=== PATIENT | female | born 1955 | race Caucasian/White ===

== ENCOUNTER 2017-05-26 09:59 | Observation (INO) | payer BC ==
[2017-05-26 10:08] VITALS: RESP 18
--- NOTE | 2017-05-26 10:51 | ED ---
General Adult HPI - General Chief complaint: Eye Problems Stated complaint: eye swelling Time Seen by Provider: 05/26/17 10:32 Source: patient Mode of arrival: ambulatory Limitations: no limitations - History of Present Illness Initial comments: 62-year-old female complains of swelling around her right eye. She states she had a pimple on her forehead for about 3 days was seen at [facility] They tried to coleen the pimple and express pus which they did not express any pus. It was treated with ointment she has multiple antibiotic ALLERGIES including azithromycin and erythromycin penicillin and sulfa and cephalexin. She last night developed some temperature is now developed a red area extending from above the pimple on the right forehead down below onto the right cheek with swelling and edema of the lids of the eye no change in her vision. No nausea no vomiting. History of [id number] diabetes - Related Data Home Medications Medication Instructions Recorded Confirmed Aspirin 81 mg PO DAILY 05/26/17 05/26/17 Ibuprofen [Motrin] 400 - 800 mg PO Q6HR PRN 05/26/17 05/26/17 Lansoprazole [Prevacid] 15 mg PO DAILY 05/26/17 05/26/17 Pravastatin Sodium [Pravachol] 40 mg PO DAILY 05/26/17 05/26/17 Valsartan/Hydrochlorothiazide 1 tab PO DAILY 05/26/17 05/26/17 [Valsartan-Hctz 160-25 mg Tab] metFORMIN HCL ER [Glucophage Xr] 500 mg PO BID 05/26/17 05/26/17 sitaGLIPtin [Januvia] 100 mg PO DAILY 05/26/17 05/26/17 Allergies Allergy/AdvReac Type Severity Reaction Status Date / Time azithromycin Allergy Rash/Hives Verified 05/26/17 11:14 erythromycin base Allergy Nausea & Verified 05/26/17 11:14 Vomiting Penicillins Allergy Rash/Hives Verified 05/26/17 11:14 Sulfa (Sulfonamide Allergy Rash/Hives Verified 05/26/17 11:14 Antibiotics) sulfamethoxazole Allergy Rash/Hives Verified 05/26/17 11:14 [From Septra] trimethoprim [From Septra] Allergy Rash/Hives Verified 05/26/17 11:14 cephalexin [From Keflex] AdvReac Nausea & Verified 05/26/17 11:14 Vomiting Review of Systems ROS Statement: Those systems with pertinent positive or pertinent negative responses have been documented in the HPI. ROS Other: All systems not noted in ROS Statement are negative. Constitutional: Reports: fever. Denies: chills Eyes: Denies: eye pain, eye discharge ENT: Denies: ear pain, throat pain Respiratory: Denies: cough, dyspnea Cardiovascular: Denies: chest pain Endocrine: Denies: fatigue Gastrointestinal: Denies: abdominal pain, nausea, vomiting, diarrhea Genitourinary: Denies: urgency, dysuria Musculoskeletal: Denies: back pain Skin: Denies: rash Psychiatric: Denies: anxiety, depression Hematological/Lymphatic: Denies: easy bleeding, easy bruising, swollen glands Past Medical History Past Medical History: Diabetes Mellitus, Hypertension Additional Past Medical History / Comment(s): basal skin cancer on face History of Any Multi-Drug Resistant Organisms: None Reported Past Surgical History: Section, Orthopedic Surgery Additional Past Surgical History / Comment(s): breast biopsy, skin CA Past Psychological History: No Psychological Hx Reported Smoking Status: Never smoker Past Alcohol Use History: Occasional Past Drug Use History: None Reported General Exam Limitations: no limitations General appearance: alert, in no apparent distress Head exam: Present: atraumatic Eye exam: Present: normal appearance, PERRL, EOMI Pupils: Present: normal accommodation ENT exam: Present: normal exam, normal oropharynx, mucous membranes moist, TM's normal bilaterally Neck exam: Present: normal inspection Respiratory exam: Present: normal lung sounds bilaterally Cardiovascular Exam: Present: regular rate, normal rhythm, normal heart sounds GI/Abdominal exam: Present: distended, normal bowel sounds Neurological exam: Present: alert, CN II-XII intact Psychiatric exam: Present: normal affect, normal mood Skin exam: Present: warm, dry, rash (Carbuncle on the right forehead about the 6 -8 mm in diameter area of redness extending from the forehead down to the cheek with edema of the right eyelids) Course Vital Signs 05/26/17 05/26/17 10:03 12:21 Temperature 98.1 F 97.9 F Pulse Rate 89 70 Respiratory 18 18 Rate Blood Pressure 139/79 174/74 O2 Sat by Pulse 98 98 Oximetry Medical Decision Making - Medical Decision Making Spoke to PA for , patient will be admitted for IV vancomycin culture was sent of the wound. Patient be on 24 hour hold - Lab Data Result diagrams: 05/26/17 11:00 05/26/17 11:00 Lab Results 05/26/17 05/26/17 Range/Units 11:00 11:00 WBC 11.2 H (3.8-10.6) k/uL RBC 4.62 (3.80-5.40) m/uL Hgb 13.2 (11.4-16.0) gm/dL Hct 39.1 (34.0-46.0) % MCV 84.7 (80.0-100.0) fL MCH 28.6 (25.0-35.0) pg MCHC 33.8 (31.0-37.0) g/dL RDW 13.2 (11.5-15.5) % Plt Count 293 (150-450) k/uL Neutrophils % 86 % Lymphocytes % 7 % Monocytes % 4 % Eosinophils % 2 % Basophils % 1 % Neutrophils # 9.7 H (1.3-7.7) k/uL Lymphocytes # 0.7 L (1.0-4.8) k/uL Monocytes # 0.5 (0-1.0) k/uL Eosinophils # 0.2 (0-0.7) k/uL Basophils # 0.1 (0-0.2) k/uL Sodium 133 L (137-145) mmol/L Potassium 3.6 (3.5-5.1) mmol/L Chloride 99 (98-107) mmol/L Carbon Dioxide 24 (22-30) mmol/L Anion Gap 10 mmol/L BUN 18 H (7-17) mg/dL Creatinine 0.66 (0.52-1.04) mg/dL Est GFR (MDRD) Af Amer >60 (>60 ml/min/1.73 sqM) Est GFR (MDRD) Non-Af >60 (>60 ml/min/1.73 sqM) Glucose 159 H (74-99) mg/dL Calcium 9.8 (8.4-10.2) mg/dL Total Bilirubin 0.6 (0.2-1.3) mg/dL AST 25 (14-36) U/L ALT 37 (9-52) U/L Alkaline Phosphatase 101 (38-126) U/L Total Protein 6.8 (6.3-8.2) g/dL Albumin 4.0 (3.5-5.0) g/dL Disposition Clinical Impression: Facial cellulitis Disposition: ADMITTED IP TO THIS HOSP Condition: Good Referrals: Lalo Hays MD [Primary Care Provider] - 1-2 days Time of Disposition: 12:31
[2017-05-26 11:13] LABS: Basophils # (A) 0.1 k/uL (0-0.2); Basophils % (A) 1 %; CH 28.4; CHCM 33.6; Eosinophils # (A) 0.2 k/uL (0-0.7); Eosinophils % (A) 2 %; HCT 39.1 % (34.0-46.0); HDW 2.61; HGB 13.2 gm/dL (11.4-16.0); Luc # (Auto) 0.13; Luc % (Auto) 1; Lymphocytes # (A) 0.7 k/uL (1.0-4.8); Lymphocytes % (A) 7 %; MCH 28.6 pg (25.0-35.0); MCHC 33.8 g/dL (31.0-37.0); MCV 84.7 fL (80.0-100.0); Mean Platelet Volume 7.6; Monocytes # (A) 0.5 k/uL (0-1.0); Monocytes % (A) 4 %; Neutrophils # (A) 9.7 k/uL (1.3-7.7); Neutrophils % (A) 86 %; RBC 4.62 m/uL (3.80-5.40); RDW 13.2 % (11.5-15.5); WBC 11.2 k/uL (3.8-10.6); WBC (Perox) 10.84
[2017-05-26 11:28] LABS: ALT 37 U/L (9-52); AST 25 U/L (14-36); Alkaline Phosphatase 101 U/L (38-126); Anion Gap 10 mmol/L; Blood Urea Nitrogen 18 mg/dL (7-17); Calcium 9.8 mg/dL (8.4-10.2); Carbon Dioxide 24 mmol/L (22-30); Chloride 99 mmol/L (98-107); Glucose 159 mg/dL (74-99); Non-African American GFR(MDRD) >60 (>60 ml/min/1.73 sqM); Potassium 3.6 mmol/L (3.5-5.1); Sodium 133 mmol/L (137-145); Total Bilirubin 0.6 mg/dL (0.2-1.3); Total Protein 6.8 g/dL (6.3-8.2)
[2017-05-26] MEDS ORDERED: VANCOMYCIN 1,500 MG in SODIUM CHLORIDE 0.9% 250 ML IVPB ONE (12:00)
[2017-05-26] MEDS ORDERED: NALOXONE 0.4 MG/ML 1 ML VIAL IV PRN (12:28)
[2017-05-26] MEDS ORDERED: IV VANCOMYCIN PER PHARMACY 1 EACH MISC MISCELLANE PRN (12:29)
[2017-05-26] MEDS: HYDROCHLOROTHIAZIDE 25 MG TAB PO SCH (13:55)
[2017-05-26] MEDS: VALSARTAN 160 MG TAB PO SCH (13:56)
[2017-05-26 14:16] VITALS: BMI 43.4
[2017-05-26] MEDS: SODIUM CHLORIDE 0.9% 1,000 ML IV SCH (15:45)
[2017-05-26] MEDS: ENOXAPARIN 40 MG/0.4 ML SYRINGE SQ SCH (17:04)
[2017-05-26] MEDS: metFORMIN 500 MG TAB PO SCH (17:04)
[2017-05-26] MEDS: IBUPROFEN 400 MG TAB PO PRN (18:27)
--- NOTE | 2017-05-26 19:57 | P.HPIM ---
History of Present Illness H&P Date: 05/26/17 Chief Complaint: Right eye swelling This is a 62-year-old female patient of Dr. Bubba Hays with chronic medical stable conditions that include diabetes mellitus, hypertension, and basal skin cancer on the face, presented to the emergency department with complaints of swelling around her right eye. Stated she had a pimple that had formed on her for head on the right side and it increased in size and had become painful and felt that it needed to be looked at. Patient went to [facility] outpatient clinic and they tried to coleen the pimple and expressed possible, and there was none to express. Received ointment postprocedure and no antibiotics and was sent home. During the night patient developed a fever area above the eye and on to the forehead had increased swelling and redness in this traveled down to the right cheek. Patient was unable to open her eye, had no visual changes. No nausea no vomiting. Review of Systems GEN.: [None] EYES: [Right eye red swollen unable to open HEENT: [None] NECK: [None] RESPIRATORY: [None] CARDIOVASCULAR: [None] GASTROINTESTINAL: [None] GENITOURINARY: [None] MUSCULOSKELETAL: [Generalized joint aches and pains] LYMPHATICS: [None] HEMATOLOGICAL: [None] PSYCHIATRY: [None] NEUROLOGICAL: [None] DERMATOLOGIC: Pimple to right nondenominational, reddened area beginning at the right bridge of the nose extending to the hairline down the right side of the face to about the outer canthus of the right eye, swelling to the right eyelid, right orbit and area just above the cheek bone. Past Medical History Past Medical History: Diabetes Mellitus, Hypertension Additional Past Medical History / Comment(s): basal skin cancer on face History of Any Multi-Drug Resistant Organisms: None Reported Past Surgical History: Section, Orthopedic Surgery Additional Past Surgical History / Comment(s): breast biopsy, skin CA Past Anesthesia/Blood Transfusion Reactions: No Reported Reaction Past Psychological History: No Psychological Hx Reported Smoking Status: Never smoker Past Alcohol Use History: Occasional Past Drug Use History: None Reported - Past Family History Mother Family Medical History: Cancer, Diabetes Mellitus, Myocardial Infarction ([place]) Additional Family Medical History / Comment(s): pancreatic Medications and Allergies Home Medications Medication Instructions Recorded Confirmed Type Aspirin 81 mg PO DAILY 05/26/17 05/26/17 History Ibuprofen [Motrin] 400 - 800 mg PO Q6HR PRN 05/26/17 05/26/17 History Lansoprazole [Prevacid] 15 mg PO DAILY 05/26/17 05/26/17 History Pravastatin Sodium [Pravachol] 40 mg PO DAILY 05/26/17 05/26/17 History Valsartan/Hydrochlorothiazide 1 tab PO DAILY 05/26/17 05/26/17 History [Valsartan-Hctz 160-25 mg Tab] metFORMIN HCL ER [Glucophage Xr] 500 mg PO BID 05/26/17 05/26/17 History sitaGLIPtin [Januvia] 100 mg PO DAILY 05/26/17 05/26/17 History Allergies Allergy/AdvReac Type Severity Reaction Status Date / Time azithromycin Allergy Rash/Hives Verified 05/26/17 13:51 erythromycin base Allergy Nausea & Verified 05/26/17 13:51 Vomiting Penicillins Allergy Rash/Hives Verified 05/26/17 13:51 Sulfa (Sulfonamide Allergy Rash/Hives Verified 05/26/17 13:51 Antibiotics) sulfamethoxazole Allergy Rash/Hives Verified 05/26/17 13:51 [From Julra] trimethoprim [From Septra] Allergy Rash/Hives Verified 05/26/17 13:51 cephalexin [From Keflex] AdvReac Nausea & Verified 05/26/17 13:51 Vomiting Physical Exam Vitals: Vital Signs Temp Pulse Pulse Resp BP BP Pulse Ox 05/26/17 14:39 97.2 F L 83 18 159/73 97 05/26/17 12:54 98.0 F 74 18 169/74 97 05/26/17 12:21 97.9 F 70 18 174/74 98 05/26/17 10:03 98.1 F 89 18 139/79 98 Intake and Output 05/26/17 05/26/17 05/26/17 06:59 14:59 22:59 Intake Total 200 Balance 200 Intake: Oral 200 Other: # Voids 2 Weight 115 kg Patient Weight 05/27/17 06:59 Weight 115 kg VITAL SIGNS: Temperature 97.2, pulse 83, respirations 18, blood pressure 159/73 , oxygen saturation 97% on room air. BMI noted] GENERAL: [Average built, sitting up, comfortable]. EYES: [Pupils equal. Right eyelid, and orbit swollen, red conjunctiva irritated.]l. HEENT: [External appearance of nose and ears normal, oral cavity grossly normal] . NECK: [JVD not raised; masses not palpable]. HEART: [First and second heart sounds are normal; no edema]. LUNGS:[ Respiratory rate normal; clear to auscultation]. ABDOMEN: [Soft, nontender, liver spleen not palpable, no masses palpable]. LYMPHATICS: [No lymph nodes palpable in the axilla and neck]. PSYCH: [Alert and oriented x3; mood and affect shashank]l. NEUROLOGICAL: [Cranial nerves grossly intact; no facial asymmetry, power and sensation grossly intact]. DERMATOLOGIC: Beginning at the right bridge of the nose extending up to the hairline on the right side of face extending downward to the outer canthus of the eye, skin is reddened and tender warm to palpation swollen area marked off with black marker to monitor swelling, carbuncle on the right forehead about the nondenominational measuring about 6-8 mm in diameter. Results CBC & Chem 7: 05/26/17 11:00 05/26/17 11:00 Labs: Abnormal Lab Results - Last 24 Hours (Table) 05/26/17 05/26/17 Range/Units 11:00 11:00 WBC 11.2 H (3.8-10.6) k/uL Neutrophils # 9.7 H (1.3-7.7) k/uL Lymphocytes # 0.7 L (1.0-4.8) k/uL Sodium 133 L (137-145) mmol/L BUN 18 H (7-17) mg/dL Glucose 159 H (74-99) mg/dL Microbiology - Last 24 Hours (Table) 05/26/17 11:08 Wound Culture - Preliminary Eye - Right Thrombosis Risk Factor Assmnt - Choose All That Apply Any of the Below Risk Factors Present?: Yes Each Factor Represents 1 point: Age 41-60 years, Obesity (BMI >25), Varicose veins Other Risk Factors: Yes Each Risk Factor Represents 2 Points: Age 61-74 years Each Risk Factor Represents 3 Points: Family history of DVT/PE Thrombosis Risk Factor Assessment Total Risk Factor Score: 8 Thrombosis Risk Factor Assessment Level: High Risk Assessment and Plan Plan: ASSESSMENT: -Facial cellulitis secondary to carbuncle being lanced and an attempt to express pus from said carbuncle, creating swelling tenderness and edema. -Diabetes mellitus2, chronically on oral hypoglycemics -Osteoarthritis of multiple joints bilateral -Essential hypertension -GERD -Hyperlipidemia PLAN: Home medications reordered, Lovenox ordered for DVT prophylaxis, vancomycin started, swelling to right eye has already responded to antibiotic administration and is considerably less. We'll continue to follow closely. [employer] statement: Patient seen and examined by nurse practitioner Colleen Grullon and all elements of the case discussed with attending Dr. Sherman
[2017-05-26] MEDS: VANCOMYCIN 2,000 MG in SODIUM CHLORIDE 0.9% 500 ML IVPB SCH (20:05)
[2017-05-26 21:23] LABS: Glucose,Whole Blood 180 mg/dL (75-99)
[2017-05-27] MEDS: SODIUM CHLORIDE 0.9% 1,000 ML IV SCH
[2017-05-27 06:58] LABS: Glucose,Whole Blood 155 mg/dL (75-99)
--- NOTE | 2017-05-27 07:23 | HP ---
DATE OF ADMISSION: 05/26/17 PRESENTING COMPLAINT: Periorbital swelling, redness. HISTORY OF PRESENTING COMPLAINT: This is a pleasant 62 year old patient of Dr. Hays who started out with a pimple that got to extend, became red, swollen around the right eye and eyelid started shutting. The patient did go down to [facility]. They tried to coleen it and express it, nothing much came out. He was sent home with no antibiotics. It started to get worse again and the patient developed some fever and decided to present here. The patient did get a dose of IV Vancomycin in the ER. On examination, febrile at home. Redness, swelling around the red eye in the periorbital area extending a bit laterally. Lungs are clear. Cardiovascular first and second sounds normal. Investigations: White count 11.2, potassium 3.6. ASSESSMENT: 1. Acute right facial cellulitis starting from a pimple having failed outpatient treatment. 2. Diabetes mellitus Type 2, on oral hypoglycemic. 3. Essential hypertensin. 4. Morbid obesity, BMI 43.5. PLAN: Home medications are resumed. The patient is put on Vancomycin that she did receive in the ER. Care was discussed with the patient. This is attending note. The patient was seen and examined by me. I reviewed the H&P Of my nurse practitioner, Ms. Grullon. Additional findings as above. MTDD
[2017-05-27] MEDS: metFORMIN 500 MG TAB PO SCH (07:24)
[2017-05-27 07:33] LABS: Basophils % (A) 1 %; CH 28.1; CHCM 32.7; Eosinophils # (A) 0.2 k/uL (0-0.7); Eosinophils % (A) 3 %; HCT 36.7 % (34.0-46.0); HDW 2.68; HGB 12.2 gm/dL (11.4-16.0); Luc % (Auto) 2; Lymphocytes # (A) 0.8 k/uL (1.0-4.8); Lymphocytes % (A) 15 %; MCH 28.8 pg (25.0-35.0); MCHC 33.3 g/dL (31.0-37.0); MCV 86.4 fL (80.0-100.0); Mean Platelet Volume 7.7; Monocytes # (A) 0.3 k/uL (0-1.0); Monocytes % (A) 5 %; Neutrophils # (A) 4.2 k/uL (1.3-7.7); Neutrophils % (A) 75 %; RBC 4.24 m/uL (3.80-5.40); RDW 13.2 % (11.5-15.5); WBC 5.6 k/uL (3.8-10.6); WBC (Perox) 5.84
[2017-05-27 07:55] LABS: Anion Gap 5 mmol/L; Blood Urea Nitrogen 14 mg/dL (7-17); Calcium 8.9 mg/dL (8.4-10.2); Carbon Dioxide 28 mmol/L (22-30); Chloride 103 mmol/L (98-107); Glucose 164 mg/dL (74-99); Non-African American GFR(MDRD) >60 (>60 ml/min/1.73 sqM); Potassium 3.5 mmol/L (3.5-5.1); Sodium 136 mmol/L (137-145)
[2017-05-27] MEDS: VANCOMYCIN 2,000 MG in SODIUM CHLORIDE 0.9% 500 ML IVPB SCH (08:32)
[2017-05-27] MEDS: HYDROCHLOROTHIAZIDE 25 MG TAB PO SCH (08:36)
[2017-05-27] MEDS: IBUPROFEN 400 MG TAB PO PRN ×2 (08:36)
[2017-05-27] MEDS: VALSARTAN 160 MG TAB PO SCH (08:36)
[2017-05-27 08:45] VITALS: BP 133/50; PULSE 65; TEMP 97.6
[2017-05-27] MEDS ORDERED: PRAVASTATIN SODIUM 40 MG TAB PO SCH (09:00)
[2017-05-27] MEDS ORDERED: LINAGLIPTIN 5 MG TABLET PO SCH (09:00)
[2017-05-27] MEDS ORDERED: PANTOPRAZOLE 40 MG TABLET PO SCH (09:00)
[2017-05-27] MEDS ORDERED: VANCOMYCIN TROUGH DUE 1 EACH MISC MISCELLANE ONE (09:00)
[2017-05-27] MEDS ORDERED: ASPIRIN 81 MG CHEW PO SCH (09:00)
[2017-05-27] MEDS: ENOXAPARIN 40 MG/0.4 ML SYRINGE SQ SCH (16:39)
[2017-05-28] MEDS ORDERED: VANCOMYCIN TROUGH DUE 1 EACH MISC MISCELLANE ONE (07:00)
--- NOTE | 2017-05-30 13:41 | DS ---
FINAL DIAGNOSES: 1. Acute right facial cellulitis having failed outpatient treatment. 2. Diabetes mellitus, Type 2, chronically on oral hypoglycemics. 3. Primary osteoarthritis of multiple joints. 4. Essential hypertension. 5. Gastroesophageal reflux disease. 6. Hyperlipidemia. HOSPITAL COURSE: This patient with right sided face started with a pimple, then went on to get periorbital cellulitis, put on Vancomycin to which she responded well. The patient had been to local urgent care and they tried to express something and nothing really came out. Symptoms greatly improved by the time. Some residual redness still present. The patient's daughter at the bedside. The patient remained afebrile. On examination, decreased redness, decreased tenderness in the right side of the face. DISCHARGE MEDICATIONS: 1. Aspirin 81 mg a day. 2. Cymbalta 60 mg b.i.d. 3. Neurontin 600 mg t.i.d. 4. Magnesium 400 mg po t.i.d. 5. Prilosec 20 mg daily. 6. Coumadin 5 mg a day 48 hours. 7. Lamictal 50 mg po daily. 8. Metformin 1000 mg po b.i.d. 9. Lipitor 20 mg q.h.s. 10. Cordarone 100 mg b.i.d. 11. Percocet 10 one tablet q4h prn. 12. Zestril 5 mg po q.h.s. 13. Coumadin 2.5 every 48 hours. 14. Toprol XL 30 mg po daily. 15. Lasix 40 mg q.h.s. 16. Zestril 5 mg q.h.s. 17. Coumadin 2.5 mg every 48 hours. 18. Toprol XL 50 mg a day. 19. Lasix 40 mg q.h.s. 20. Synthroid 75 mcg a day. 21. Lasix 80 mg a day. 22. Doxycycline 100 mg q12 20 tablets. 23. NovoLog mix 70/30 10 units with lunch, 20 with supper, 30 with breakfast. Care was discussed in detail with the patient. Discharge planning more than [address] Morgan in three days. [facility] BROTHERS MEDICAL CENTERGayle
== END 2017-05-27 16:35 | disposition home or self-care (01) ==
LOC: EC 09:59 → 6PED 12:28
PROVIDERS: ADMIT Hospitalist; ATTEND Hospitalist
DX: L03.211 Cellulitis of face (principal); L03.213 Periorbital cellulitis; E11.9 Type 2 diabetes mellitus without complications; I10 Essential (primary) hypertension; K21.9 Gastro-esophageal reflux disease without esophagitis; E78.5 Hyperlipidemia, unspecified; Z79.82 Long term (current) use of aspirin; Z79.899 Other long term (current) drug therapy; Z79.84 Long term (current) use of oral hypoglycemic drugs; Z88.1 Allergy status to other antibiotic agents; Z88.0 Allergy status to penicillin; Z88.2 Allergy status to sulfonamides; Z88.8 Allergy status to other drugs, medicaments and biological substances; Z85.828 Personal history of other malignant neoplasm of skin; Z82.49 Family history of ischemic heart disease and other diseases of the circulatory system; Z68.41 Body mass index [BMI] 40.0-44.9, adult; E66.01 Morbid (severe) obesity due to excess calories; M19.91 Primary osteoarthritis, unspecified site
CPT/HCPCS: 96365 ×2; 96366; 96372 ×2; 99284; 36415; 80053; 80048; 85025 ×2; 87070; 87205; 87077; 87186; G0378 ×2; J3370 ×2; J1650

== ENCOUNTER 2017-11-12 13:12 | Emergency (ER) | payer BC ==
[2017-11-12] MEDS ORDERED: LEVOFLOXACIN 500 MG TAB PO STA (14:34)
[2017-11-12] MEDS ORDERED: LEVOFLOXACIN 250 MG TAB PO STA (14:34)
--- NOTE | 2017-11-12 14:36 | ED ---
Skin/Abscess/FB HPI - General Chief complaint: Skin/Abscess/Foreign Body Stated complaint: Rash on thigh Time Seen by Provider: 11/12/17 14:02 Source: patient, family, RN notes reviewed, old records reviewed Mode of arrival: ambulatory Limitations: no limitations - History of Present Illness Initial comments: 62 yo female, history of MRSA with 3 days of erythema over right inner thigh. She reports started as small pimple. Denies focal abscess to drain. She is diabetic. Denies fever or chills. Denies CP, SOB, nausea, vomiting and other symptomss. - Related Data Home Medications Medication Instructions Recorded Confirmed Aspirin 81 mg PO DAILY 05/26/17 11/12/17 Ibuprofen [Motrin] 400 - 800 mg PO Q6HR PRN 05/26/17 11/12/17 Lansoprazole [Prevacid] 15 mg PO DAILY 05/26/17 11/12/17 Pravastatin Sodium [Pravachol] 40 mg PO DAILY 05/26/17 11/12/17 Valsartan/Hydrochlorothiazide 1 tab PO DAILY 05/26/17 11/12/17 [Valsartan-Hctz 160-25 mg Tab] metFORMIN HCL ER [Glucophage Xr] 500 mg PO BID 05/26/17 11/12/17 sitaGLIPtin [Januvia] 100 mg PO DAILY 05/26/17 11/12/17 Previous Rx's Medication Instructions Recorded Doxycycline [Vibramycin] 100 mg PO Q12HR 10 Days 11/12/17 Allergies Allergy/AdvReac Type Severity Reaction Status Date / Time azithromycin Allergy Rash/Hives Verified 11/12/17 13:51 erythromycin base Allergy Nausea & Verified 11/12/17 13:51 Vomiting Penicillins Allergy Rash/Hives Verified 11/12/17 13:51 Sulfa (Sulfonamide Allergy Rash/Hives Verified 11/12/17 13:51 Antibiotics) sulfamethoxazole Allergy Rash/Hives Verified 11/12/17 13:51 [From Septra] trimethoprim [From Septra] Allergy Rash/Hives Verified 11/12/17 13:51 cephalexin [From Keflex] AdvReac Nausea & Verified 11/12/17 13:51 Vomiting Review of Systems ROS Statement: Those systems with pertinent positive or pertinent negative responses have been documented in the HPI. ROS Other: All systems not noted in ROS Statement are negative. Past Medical History Past Medical History: Cancer, Diabetes Mellitus, Hypertension Additional Past Medical History / Comment(s): basal skin cancer on face History of Any Multi-Drug Resistant Organisms: MRSA Date of last positivie culture/infection: 05/26/17 MDRO Source:: EYE Past Surgical History: Section, Orthopedic Surgery Additional Past Surgical History / Comment(s): breast biopsy, skin CA Past Anesthesia/Blood Transfusion Reactions: No Reported Reaction Past Psychological History: No Psychological Hx Reported Smoking Status: Never smoker Past Alcohol Use History: Occasional Past Drug Use History: None Reported - Past Family History Mother Family Medical History: Cancer, Diabetes Mellitus, Myocardial Infarction ([place]) Additional Family Medical History / Comment(s): pancreatic General Exam - General Exam Comments Initial Comments: This is a 62 year old female, with CC rash on right inner thigh. No distress. Vitals stable. Limitations: no limitations General appearance: alert, in no apparent distress Head exam: Present: atraumatic, normocephalic, normal inspection Eye exam: Present: normal appearance, PERRL, EOMI. Absent: scleral icterus, conjunctival injection, periorbital swelling ENT exam: Present: normal exam, mucous membranes moist Neck exam: Present: normal inspection. Absent: tenderness, meningismus, lymphadenopathy Respiratory exam: Present: normal lung sounds bilaterally. Absent: respiratory distress, wheezes, rales, rhonchi, stridor Cardiovascular Exam: Present: regular rate, normal rhythm, normal heart sounds. Absent: systolic murmur, diastolic murmur, rubs, gallop, clicks GI/Abdominal exam: Present: soft, normal bowel sounds. Absent: distended, tenderness, guarding, rebound, rigid Extremities exam: Present: normal inspection, full ROM, normal capillary refill , other (8 inch area of cellulitis over ight inner thigh. No focal abscess drainage. ). Absent: tenderness, pedal edema, joint swelling, calf tenderness Back exam: Present: normal inspection Course Vital Signs 11/12/17 11/12/17 13:18 14:55 Temperature 98.4 F 98.1 F Pulse Rate 92 88 Respiratory 16 20 Rate Blood Pressure 151/67 128/84 O2 Sat by Pulse 99 98 Oximetry Medical Decision Making - Medical Decision Making 62 year old diabetic with Hx of MRSA with 3 days of right inner thigh celluliits. She reports no Recent abx. She was admitted for facial cellulites in May. She has a complicated alergy list to many appropriate antibiotics. Previous discharge, patient was started on doxycycline. I will initiate doxy today, dose in ED. Patient was offered admission with IV antibiotic. She reports she wants to try outpatient first. Discussed follow up promptly, discussed that if area of erythema worsens that she needs to return for IV antibiotics. . Discuarged on docy for 10 days. Return parameters discussed. Disposition Clinical Impression: Cellulitis of thigh Disposition: HOME SELF-CARE Condition: Good Instructions: Cellulitis (ED) Additional Instructions: Ice to take antibiotic as prescribed. Follow-up with PCP within the next 1-2 days. Motrin Tylenol for fever or pain. The area is worsening despite taking the antibiotic patient is return to the emergency center. Prescriptions: Doxycycline [Vibramycin] 100 mg PO Q12HR 10 Days Referrals: Lalo Hays MD [Primary Care Provider] - 1-2 days Time of Disposition: 14:34
[2017-11-12] MEDS ORDERED: DOXYCYCLINE 50 MG CAP PO STA (14:38)
[2017-11-12 14:58] VITALS: BP 128/84; PULSE 88; RESP 20; TEMP 98.1
== END 2017-11-12 14:57 | disposition home or self-care (01) ==
LOC: EC 13:12
DX: L03.115 Cellulitis of right lower limb (principal); I10 Essential (primary) hypertension; E11.9 Type 2 diabetes mellitus without complications; Z79.82 Long term (current) use of aspirin; Z79.84 Long term (current) use of oral hypoglycemic drugs; Z79.899 Other long term (current) drug therapy; Z88.0 Allergy status to penicillin; Z88.1 Allergy status to other antibiotic agents; Z88.2 Allergy status to sulfonamides; Z85.828 Personal history of other malignant neoplasm of skin; Z86.14 Personal history of Methicillin resistant Staphylococcus aureus infection; Z98.890 Other specified postprocedural states
CPT/HCPCS: 99283

== ENCOUNTER → 2018-03-19 | Outpatient (CLI) | payer BC ==
[2018-03-19 14:19] LABS: HCT 37.1 % (34.0-46.0); HGB 12.2 gm/dL (11.4-16.0); MCH 27.9 pg (25.0-35.0); MCHC 32.9 g/dL (31.0-37.0); MCV 84.7 fL (80.0-100.0); Mean Platelet Volume 7.3; Platelet Count 248 k/uL (150-450); RBC 4.38 m/uL (3.80-5.40); RDW 13.4 % (11.5-15.5)
[2018-03-19 14:29] LABS: Partial Thromboplastin Time 24.9 sec (22.0-30.0); Prothrombin Time 9.9 sec (9.0-12.0)
[2018-03-19 14:37] LABS: ALT 25 U/L (9-52); AST 22 U/L (14-36); Albumin 3.7 g/dL (3.5-5.0); Alkaline Phosphatase 105 U/L (38-126); Anion Gap 13 mmol/L; Appearance,Urine Clear (Clear); Bilirubin,Urine Negative (Negative); Blood Urea Nitrogen 22 mg/dL (7-17); Blood,Urine Negative (Negative); Calcium 9.9 mg/dL (8.4-10.2); Carbon Dioxide 29 mmol/L (22-30); Chloride 95 mmol/L (98-107); Color,Urine Yellow; Glucose 270 mg/dL (74-99); Glucose,Urine (UA) 3+ (Negative); Hyaline Casts,Urine 3 /lpf (0-2); Ketones,Urine Negative (Negative); Leukocyte Esterase,Urine Moderate (Negative); Mucus,Urine Rare /hpf; Nitrite,Urine Negative (Negative); PH, Urine 5.5 (5.0-8.0); Potassium 3.7 mmol/L (3.5-5.1); Protein,Urine Negative (Negative); Sodium 137 mmol/L (137-145); Specific Gravity,Urine 1.013 (1.001-1.035); Squamous Epithelial Cell,Urine 4 /hpf (0-4); Total Bilirubin 0.3 mg/dL (0.2-1.3); Total Protein 6.1 g/dL (6.3-8.2); Urobilinogen,Urine <2.0 mg/dL (<2.0); WBC,Urine 2 /hpf (0-5)
== END | disposition home or self-care (01) ==
LOC: LABPAT 13:42
PROVIDERS: ATTEND Orthopaedic Surgery
DX: Z01.818 Encounter for other preprocedural examination (principal); Z01.812 Encounter for preprocedural laboratory examination
CPT/HCPCS: 36415; 80053; 81001; 85027; 85610; 85730; 87070; 93005

== ENCOUNTER 2018-04-01 06:03 | Inpatient (IN) | payer BC ==
[2018-03-22 16:18] VITALS: BMI 42.8
[~2018-04-01 06:03] MED LIST: ACETAMINOPHEN TAB 500 MG TAB PO ONE; MELOXICAM 7.5 MG TAB PO ONE; ROPIVACAINE 246.25 MG, EPINEPHrine 0.5 MG, KETOROLAC 30 MG, cloNIDine HCL/PF 80 MCG, WA... MISCELLANE ONE; TRANEXAMIC ACID 1,000 MG in SODIUM CHLORIDE 0.9% 50 ML IVPB ONE; VANCOMYCIN 1,750 MG in SODIUM CHLORIDE 0.9% 250 ML IVPB ONE
[2018-04-01] MEDS ORDERED: ONDANSETRON 4 MG/2 ML VIAL IVP ONE (06:04)
[2018-04-01] MEDS ORDERED: MIDAZOLAM 2 MG/2 ML VIAL IV PRN (06:04)
[2018-04-01] MEDS ORDERED: DEXAMETHASONE SOD PHOSPHATE 10 MG/ML 1 ML VIAL IV ONE (06:04)
[2018-04-01] MEDS ORDERED: LIDOCAINE 1% 20 ML VIAL (10MG/ML) FOR IV START INTRADERMA PRN (06:04)
[2018-04-01] MEDS: LACTATED RINGERS 1,000 ML IV SCH ×2 (06:56→07:54)
[2018-04-01 07:11] LABS: Glucose,Whole Blood 174 mg/dL (75-99)
[2018-04-01] MEDS ORDERED: SCOPOLAMINE 1.5MG/72HR PATCH TRANSDERM ONE (07:30)
[2018-04-01] MEDS ORDERED: ROPIVACAINE 1,100 MG, SODIUM CHLORIDE 0.9% 330 ML MISCELLANE PRN ×2 (08:17)
--- NOTE | 2018-04-01 08:19 | P.ONQ ---
Anesthesiology Proc Note - PNB - Peripheral Nerve Block Performed Right Adductor Canal Infusion Time Out Performed: Yes Procedure Start Time: 08:05 Procedure Stop Time: 08:11 Indication: Acute Post-Operative Pain, Requested by physician Sedation Type: Sedate with meaningful contact maintained Preparation: Sterile Dressing Position: Supine Catheter: Indwelling Needle Types: On-Q Needle Size: 100mm (4") Needle Gauge: 21 Technique: Ultrasound Injectate: 0.5% Ropivacaine (see comment for volume) (ropi .5%) Blood Aspirated: No Pain Paresthesia on Injection Noted: No Resistance on Injection: Normal Events: Uneventful and Well Tolerated
[2018-04-01] MEDS ORDERED: NA PHOS,M-B/NA PHOS,DI-BA 133 ML ENEMA RECTAL PRN (08:56)
[2018-04-01] MEDS ORDERED: HYDROmorphone 0.5 MG/0.5 ML SYRINGE IVP PRN ×3 (08:56)
[2018-04-01] MEDS ORDERED: NALOXONE 0.4 MG/ML 1 ML VIAL IV PRN (08:56)
[2018-04-01] MEDS ORDERED: MAGNESIUM HYDROXIDE 2,400 MG/10 ML CUP PO PRN (08:56)
[2018-04-01] MEDS ORDERED: BISACODYL 10 MG SUPP RECTAL PRN (08:56)
[2018-04-01] MEDS ORDERED: hydrOXYzine PAMOATE 25 MG CAP PO PRN (08:56)
[2018-04-01] MEDS ORDERED: ONDANSETRON 4 MG/2 ML VIAL IVP PRN (08:56)
[2018-04-01] MEDS ORDERED: DIAZEPAM 5 MG TAB PO PRN ×2 (08:56)
[2018-04-01] MEDS ORDERED: ePHEDrine SULFATE/0.9% NACL/PF 50 MG/5 ML SYRINGE IV ONE (09:30)
[2018-04-01] MEDS ORDERED: TRANEXAMIC ACID 1,000 MG/10 ML VIAL ONE (09:30)
[2018-04-01] MEDS ORDERED: SODIUM CHLORIDE 0.9% 100 ML BAG ONE (09:30)
[2018-04-01] MEDS ORDERED: MIDAZOLAM 2 MG/2 ML VIAL ONE (09:30)
[2018-04-01] MEDS ORDERED: CLINDAMYCIN 1,800 MG in SODIUM CHLORIDE 0.9% IRRIGATIO 3,000 ML IRRIGATION ONE (09:35)
[2018-04-01] MEDS ORDERED: LACTATED RINGERS 1,000 ML IV ONE (10:31)
--- NOTE | 2018-04-01 10:56 | P.OP ---
Date of Procedure: 04/01/18 Preoperative Diagnosis: Severe osteoarthritis right knee with a valgus deformity Postoperative Diagnosis: Severe osteoarthritis right knee with a valgus deformity Procedure(s) Performed: Right total knee arthroplasty Implants: [employer]encio [employer] Nephew Oxinium femoral component size 6, right Ascencio [employer] Nephew Candy II right nonporous tibial baseplate size 4 Ascencio [employer] Nephew size 9 mm Legion XLPE dished articular insert, size 3-4 Ascenc[employer]hew Candy II resurfacing patellar component, 29 mm All components were cemented using Heather bone cement.. The articulation is Oxinium on polyethylene. Anesthesia: spinal Surgeon: Kingston Sarkar [employer] Whe[employer] Axles Inspector #1: Beatrice Hughes Estimated Blood Loss (ml): 50 Pathology: other (Bone and cartilage) Condition: stable Disposition: PACU Indications for Procedure: After failure of conservative treatment we discussed the surgical and nonsurgical treatment options at length. Patient wishes to proceed with a total knee arthroplasty. Complications specific to this procedure were discussed at length, including but not limited to infection, bleeding, stiffness , and nerve injury. Patient is aware of all these complications and informed consent was obtained Operative Findings: The operative findings are consistent with severe osteoarthritis of the right knee with a valgus deformity Description of Procedure: Patient was seen in the preoperative area consent was reviewed and operative site was marked with a skin marker. An adductor canal pain catheter was placed by anesthesia in the preoperative area. Patient was then brought to the operating room and given preoperative antibiotics intravenously. A spinal anesthetic was administered by the anesthesia department. A tourniquet was placed on the upper thigh and the lower extremity was prepped and draped in usual sterile fashion. A gram of transexamic acid was given. A universal timeout was then performed which confirmed the patient's name, surgical site, ALLERGIES, and consent. The lower extremity was then exsanguinated and tourniquet was inflated to 300 mmHg. A standard and anterior midline approach to the knee was performed. The skin and subcutaneous tissue was dissected down to the patellar tendon. A medial parapatellar arthrotomy was then performed. The knee was then extended, the patellar was everted, and the knee was again flexed. Anterior horns of both menisci were excised, and a release was performed to the posterior medial aspect of the knee. Care was taken to do a minimal release because of her valgus deformity. On gross visual inspection, there was complete loss of articular cartilage in the medial and patellofemoral joint spaces. There was also significant cartilage damage in the lateral compartment. There were multiple periarticular osteophytes which were then removed with a Ronguer. The femoral canal was then opened with the appropriate drill, and the intramedullary femoral cutting guide was then placed and set for 4 of valgus. The distal femoral cutting block was then pinned in place, and the distal femur was then cut. The cutting block was then removed and the cut was checked for flatness. Next, the sizing guide was then placed and set for 3 external rotation based off of the epicondylar axis and Whitesides line. After the femur was sized, the appropriate 4-in-1 cutting block was then pinned in place. The anterior condyles were cut without notching. The posterior and chamfer cuts were performed while protecting the collateral ligaments. The cutting block was then removed, and the femoral canal was plugged with autologous bone. Attention was then directed to the tibia. The remaining ACL was removed with a Ronguer, and the tibia was then gently subluxed forward with a large bent knee retractor. Any remaining menisci was excised. The posterior lateral corner was cauterized in order to cauterize the lateral geniculate artery. The extra medullary tibial cutting guide was then placed, set for the appropriate rotation , slope, and depth of resection. The proximal tibia cutting guide was then pinned in place. Proximal tibia was then cut and sized. Next trials were then placed with the appropriate-sized insert. The knee was able to fully extend and flex to 130 and was stable throughout all range of motion. The knee was then extended, patella everted. Patella was then measured, and then using an osteotomy guide, the patella was cut at the appropriate level. The patella was then measured and drilled and the patella trial was then placed. The knee was then taken through range of motion with the patella trial and the patella tracked normally. The knee was then extended patella trial was then removed and the patella was everted. Knee was then flexed and lug holes were drilled through the femoral trial and the femoral trial was then removed. The tibial was then exposed, and the tibial broach guide was then pinned in place after it was set for the appropriate rotation to allow for the most coverage without overhang. The tibia was then reamed and broached. The cut surfaces of bone were then irrigated with pulsatile lavage. The posterior structures were injected with the ropivacaine solution. The knee was also irrigated with Irrisept solution. The components were then opened, the cement was mixed, and the components were then cemented in place. The cement was allowed to harden with the knee in full extension. While the cement was hardening, the remaining soft tissues were then injected with a ropivacaine solution, which consisted of 246.25 mg of ropivacaine, 0.5 mg of epinephrine, 30 mg of Toradol, 80 g of clonidine, and 48.45 mL of sterile water, for a total of 100 mL of fluid injected. After the cemented hardened. The tourniquet was released, and hemostasis was obtained. A second gram of transexamic acid was given. The knee was again irrigated. The knee was again taken through range of motion and found to be stable throughout all range of motion of 0-130 , and the patella tracked normally. The fascia was then closed with #2 strata fix suture. The subcutaneous tissue was closed with 3-0 Vicryl and 3-0 strata fix. Dermabond glue was used for the skin and placed with the knee in flexion. The patient was placed in a sterile silver dressing. Patient was then transferred to recovery room in stable condition. The assistant professor of dietetics DIAMOND Mcneal was required due the complexity surgery and the need for a skilled surgical instruments inspector. She assisted in positioning, draping, retraction, and closure of the wound.
--- NOTE | 2018-04-01 11:52 | XR ---
Limited right knee HISTORY: Postop knee arthroplasty 2 views of the right knee submitted No comparisons Patient is status post right knee arthroplasty. Lucency in the soft tissues is compatible with postop state. There is anatomic alignment. IMPRESSION: Orthopedic follow-up.
[2018-04-01 12:08] LABS: Glucose,Whole Blood 228 mg/dL (75-99)
[2018-04-01] MEDS ORDERED: INSULIN ASPART 100 UNIT/ML 1 ML 10 ML VIAL SQ ONE (12:12)
[2018-04-01] MEDS: SODIUM CHLORIDE 0.9% 1,000 ML IV SCH (12:28)
--- NOTE | 2018-04-01 14:30 | CONS ---
CONSULTATION DATE OF CONSULTATION: 04/01/2018 REASON FOR CONSULTATION: Medical management requested by Dr. Sarkar. CONSULTATION: This is a 63 -year-old patient of Dr. Hays. The patient has undergone a right total knee arthroplasty. Post procedure, lying in bed, comfortable. No nausea, vomiting. No chest pain. The patient has 2 daughters at the bedside. Chronic stable medical conditions include diabetes, hypertension, hyperlipidemia, arthritis of the left knee and dry skin. The patient is rather comfortable. REVIEW OF SYSTEMS: CONSTITUTIONAL: None. HEENT none. Respiratory none. Cardiovascular none. Gastrointestinal none. Genitourinary none. Musculoskeletal: Arthritic pain especially in the left knee. Dermatological: Dry skin. Hematologic, lymphatic none. Psychiatry none. Neurological none. PAST MEDICAL HISTORY: Diabetes, hypertension, hyperlipidemia, osteoarthritis, left knee dry skin. Also basal skin cancer of the face. PAST SURGICAL HISTORY: , breast biopsy, skin cancer removed. SOCIAL HISTORY: Lives by herself. Alcohol occasionally. Does not smoke. 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 FAMILY HISTORY: Diabetes, myocardial infarction, pancreatic cancer. HOME MEDICATIONS: 1. Januvia 100 mg p.o. daily. 2. Glucophage XR 5 mg p.o. b.i.d. 3. Valsartan hydrochlorothiazide 160/25 1 tab p.o. daily. 4. Pravachol 40 mg p.o. daily. 5. Potassium 198 mg p.o. daily. 6. Prevacid 50 mg p.o. daily. 7. Aspirin 81 mg p.o. daily. 8. Tylenol 1000 mg q.6. ALLERGY: TO AZITHROMYCIN, ERYTHROMYCIN, PENICILLIN, SULFUR, BACTRIM, KEFLEX. EXAMINATION: Temp 97.2, pulse 99, respiration 16, blood pressure 105/46, pulse ox 96% on room air. General appearance: Well built, BMI 42.9. Propped up in bed, comfortable. Eyes pupils are equal. Conjunctivae normal. HEENT external appearance of nose and ears normal. Oral cavity normal. Neck JVD not raised. Mass not palpable. Respiratory effort: Normal. Lungs fair entry. Cardiovascular 1st and 2nd sounds normal. No edema. ABDOMEN: Soft and nontender. Liver and spleen not palpable. Lymphatics: No lymph nodes palpable in neck or axillae. PSYCHIATRY: Alert and oriented times three. Mood and affect normal. Extremities: Right knee in a dressing. Musculoskeletal: Evidence of osteoarthritis especially left knee. INVESTIGATIONS: Accu-Cheks are noted. ASSESSMENT: 1. Right total knee arthroplasty. 2. Primary osteoarthritis, left knee. 3. Diabetes mellitus, type 2 on oral hypoglycemic. 4. Hypertension. 5. Essential hypertension. 6. Morbid obesity BMI 42.9. PLAN: Home medications resumed. Accu-Cheks to be followed. For DVT prophylaxis, patient on aspirin per Dr. Sarkar. Pain is controlled. Care was discussed with the patient and daughter at the bedside. Questions were answered. Will have patient see a dietitian for weight loss measures. Thank you Dr. Sarkar. Copy to Dr. Hays. [id number] / IJN: [id number] /
--- NOTE | 2018-04-01 15:03 | CT ---
EXAMINATION TYPE: CT brain wo con DATE OF EXAM: 04/01/2018 COMPARISON: NONE HISTORY: Patient fell and hit head today. Patient complains of headache post fall. CT DLP: 830.[address] of the brain was performed. The ventricles, basal cisterns and sulci overlying the cerebral convexities demonstrate mild enlargem ent. There is no evidence for intracranial hemorrhage or sulcal effacement. There is decreased attenuation about the periventricular white matter and deep white matter of both c erebral hemispheres, compatible with chronic small vessel ischemia. Differential diagnosis does inclu de demyelination. No mass effects are seen.No midline shift. Osseous calvarium is intact. If symptoms persist consider MRI. IMPRESSION: 1. Age related atrophic and chronic small vessel ischemic change without acute intracranial process s een at this time.
[2018-04-01] MEDS: HYDROcodone/APAP 5-325MG 1 EACH TAB PO PRN ×3 (15:14→23:22)
[2018-04-01 17:23] LABS: Glucose,Whole Blood 272 mg/dL (75-99)
[2018-04-01] MEDS: INSULIN ASPART 100 UNIT/ML 1 ML 10 ML VIAL SQ SCH ×2 (17:26→21:09)
[2018-04-01] MEDS ORDERED: VANCOMYCIN 1,750 MG in SODIUM CHLORIDE 0.9% 250 ML IVPB ONE (18:00)
[2018-04-01 20:18] LABS: Glucose,Whole Blood 272 mg/dL (75-99)
[2018-04-01] MEDS ORDERED: SENNOSIDES-DOCUSATE SODIUM 1 EACH TAB PO SCH (21:00)
[2018-04-01] MEDS: metFORMIN 500 MG TAB PO SCH (21:11)
[2018-04-01] MEDS: ASPIRIN 325 MG TAB PO SCH (23:23)
[2018-04-02] MEDS: SODIUM CHLORIDE 0.9% 1,000 ML IV SCH ×2 (00:38→13:40)
[2018-04-02] MEDS: CALCIUM CARBONATE 500 MG CHEWABLE PO PRN ×2 (00:44→10:38)
[2018-04-02] MEDS: HYDROcodone/APAP 5-325MG 1 EACH TAB PO PRN ×2 (05:04→10:42)
--- NOTE | 2018-04-02 07:19 | P.PN ---
Progress Note - Text 04/02 650am 63-year-old female status post right knee replacement by Dr. Kingston Sarkar. Patient has an On-Q pump for postop pain control with solution running at 8 mL an hour patient has a VAS of 4 and I encouraged her to have .the rate increased to 10 mL an hour for the On-Q pump
[2018-04-02 07:25] LABS: Glucose,Whole Blood 161 mg/dL (75-99)
[2018-04-02 07:58] VITALS: BP 108/44; PULSE 68; RESP 16; TEMP 97.7
[2018-04-02] MEDS: INSULIN ASPART 100 UNIT/ML 1 ML 10 ML VIAL SQ SCH ×2 (07:59→12:37)
[2018-04-02] MEDS: ASPIRIN 325 MG TAB PO SCH (08:03)
[2018-04-02] MEDS: metFORMIN 500 MG TAB PO SCH (08:03)
[2018-04-02 08:41] LABS: Basophils % (A) 0 %; Eosinophils % (A) 0 %; HCT 31.8 % (34.0-46.0); HGB 10.4 gm/dL (11.4-16.0); Lymphocytes # (A) 0.8 k/uL (1.0-4.8); Lymphocytes % (A) 9 %; MCH 27.8 pg (25.0-35.0); MCHC 32.6 g/dL (31.0-37.0); MCV 85.2 fL (80.0-100.0); Mean Platelet Volume 7.5; Monocytes # (A) 0.4 k/uL (0-1.0); Monocytes % (A) 5 %; Neutrophils # (A) 7.1 k/uL (1.3-7.7); Neutrophils % (A) 84 %; Platelet Count 222 k/uL (150-450); RBC 3.74 m/uL (3.80-5.40); RDW 14.3 % (11.5-15.5); WBC 8.5 k/uL (3.8-10.6)
[2018-04-02] MEDS ORDERED: PRAVASTATIN SODIUM 40 MG TAB PO SCH (09:00)
[2018-04-02] MEDS ORDERED: MELOXICAM 7.5 MG TAB PO SCH (09:00)
[2018-04-02] MEDS ORDERED: HYDROCHLOROTHIAZIDE 25 MG TAB PO SCH (09:00)
[2018-04-02] MEDS ORDERED: PANTOPRAZOLE 40 MG TABLET PO SCH (09:00)
[2018-04-02] MEDS ORDERED: LINAGLIPTIN 5 MG TABLET PO SCH (09:00)
[2018-04-02] MEDS ORDERED: VALSARTAN 160 MG TAB PO SCH (09:00)
--- NOTE | 2018-04-02 09:33 | P.DS ---
Providers Date of admission: 04/01/18 06:03 Expected date of discharge: 04/02/18 Attending physician: Kingston Sarkar Consults: 04/01/18 08:56 Consult Physician Routine Consulting Provider: Lalo Hays Consult Reason/Comments: medical management Do you want consulting provider notified?: Yes 04/01/18 12:10 Consult Physician Routine Consulting Provider: Alonzo Sherman Consult Reason/Comments: Medical management Do you want consulting provider notified?: Yes Primary care physician: Bubba Hays - Discharge Diagnosis(es) (1) Primary osteoarthritis of right knee Current Visit: Yes Status: Acute (2) S/P total knee arthroplasty Current Visit: Yes Status: Acute Hospital Course: This is a 63-year-old female with known history of degenerative arthritis of the right knee. The patient presents for evaluation. After discussion and consideration patient elects to proceed with total knee arthroplasty. The patient is seen preoperatively by Dr. Sarkar and medically cleared for surgery by their primary care physician. Patient is admitted to [facility] on 04/01/2018 for total knee arthroplasty. The procedures performed without complication or sequelae. The patient is doing well postoperatively. Labs and vital signs are stable on day of discharge. Patient did have a fall on 04/01/2018 while in the bathroom. The patient lost her balance and hit her head. Patient did not lose consciousness and is asymptomatic on day of discharge. A brain CT was negative. On day of discharge patient's knee incision is healing well. There is minimal erythema. There is no drainage noted at this time. There is minimal soft tissue swelling to the knee. Patient has full foot and ankle motion without difficulty or pain. Neurovascular status to the right lower extremity is intact. Patient is discharged home in good condition. Please see med rec for accurate list of home medications. Plan - Discharge Summary Discharge Rx Participant: Yes New Discharge Prescriptions: New Aspirin 325 mg PO BID #60 tab HYDROcodone/APAP 5-325MG [Osseo 5-325] 1 - 2 tab PO Q4-6H PRN #90 tab PRN Reason: Pain Sennosides [Senokot] 1 tab PO BID #60 tablet No Action Lansoprazole [Prevacid] 15 mg PO DAILY Ibuprofen [Motrin] 400 - 800 mg PO Q6HR PRN PRN Reason: Pain Aspirin 81 mg PO DAILY sitaGLIPtin [Januvia] 100 mg PO DAILY metFORMIN HCL ER [Glucophage Xr] 500 mg PO BID Valsartan/Hydrochlorothiazide [Valsartan-Hctz 160-25 mg Tab] 1 tab PO DAILY Pravastatin Sodium [Pravachol] 40 mg PO DAILY Potassium 198 mg PO DAILY Acetaminophen Tab [Tylenol Tab] 1,000 mg PO Q6HR Discharge Medication List Aspirin 81 mg PO DAILY 05/26/17 [History] Ibuprofen [Motrin] 400 - 800 mg PO Q6HR PRN 05/26/17 [History] Lansoprazole [Prevacid] 15 mg PO DAILY 05/26/17 [History] Pravastatin Sodium [Pravachol] 40 mg PO DAILY 05/26/17 [History] Valsartan/Hydrochlorothiazide [Valsartan-Hctz 160-25 mg Tab] 1 tab PO DAILY [History] metFORMIN HCL ER [Glucophage Xr] 500 mg PO BID 05/26/17 [History] sitaGLIPtin [Januvia] 100 mg PO DAILY 05/26/17 [History] Potassium 198 mg PO DAILY 03/22/18 [History] Acetaminophen Tab [Tylenol Tab] 1,000 mg PO Q6HR 04/01/18 [History] Aspirin 325 mg PO BID #60 tab 04/02/18 [Rx] HYDROcodone/APAP 5-325MG [Osseo 5-325] 1 - 2 tab PO Q4-6H PRN #90 tab 04/02/18 [ Rx] Sennosides [Senokot] 1 tab PO BID #60 tablet 04/02/18 [Rx] Follow up Appointment(s)/Referral(s): Lalo Hays MD [Primary Care Provider] - 1 Week Kingston Sarkar DO [Doctor of Osteopathic Medicine] - 2 Weeks Ambulatory/Diagnostic Orders: Continuous Passive Motion (CPM) Machine [DME.AMB1] Time Frame: 3 Weeks, Location : Determined By Patient Activity/Diet/Wound Care/Special Instructions: Weightbearing as tolerated with a walker CPM 5-6h daily Leave dressing intact. May be removed by home care nurse in 10 days. May shower with dressing on. [facility] with questions or concerns [phone] Discharge Disposition: HOME WITH HOME HEALTH SERVICES
[2018-04-02 11:52] LABS: Glucose,Whole Blood 182 mg/dL (75-99)
[2018-04-02 17:59] LABS: Hemoglobin A1C 7.9 % (4.0-6.0)
--- NOTE | 2018-04-02 23:48 | PN ---
PROGRESS NOTE DATE OF SERVICE: 04/02/2018 PRESENTING COMPLAINT: Right total knee arthroplasty. INTERVAL HISTORY: Patient is status post right knee surgery, doing well. Patient did bump her head yesterday when she fell. Now feeling feeling. Did work with Physical Therapy. REVIEW OF SYSTEMS: Done for constitutional, cardiovascular, GI, pulmonary, neuro; relevant findings as above. CURRENT MEDICATIONS: Reviewed. PHYSICAL EXAMINATION: Temperature 97.7, pulse 68, respiration 16, blood pressure 108/44, pulse ox 99% on room air. GENERAL APPEARANCE: Sitting at the edge of the bed, comfortable. EYES: Pupils equal. Conjunctivae normal. HEENT: External appearance of nose and ears normal. Oral cavity normal. NECK: JVD not raised. Mass not palpable. RESPIRATORY: Effort normal. LUNGS: Fair air entry. CARDIOVASCULAR: First and second sounds normal. No edema. ABDOMEN: Soft, non-tender. Liver and spleen not palpable. PSYCHIATRY: Alert and oriented x3. Mood and affect normal. INVESTIGATIONS: Hemoglobin 10.4. CT scan of the brain showed some chronic changes. ASSESSMENT: 1. Right total knee arthroplasty. 2. Primary osteoarthritis, left knee. 3. Diabetes mellitus, on oral hypoglycemic. 4. Essential hypertension. 5. Morbid obesity with body mass index of 42.9. 6. Blunt injury to the head from a fall but no focal symptoms or signs, and CT scan of brain has been unremarkable. PLAN: Patient's care was discussed with the patient. Patient is stable from my standpoint. MMODL / IJN: [id number] /
== END 2018-04-02 14:15 | disposition home health service (06) | DRG 470 ==
LOC: 2ORMAIN 06:03 → 3SUR 11:24
PROVIDERS: ADMIT Orthopaedic Surgery; ATTEND Orthopaedic Surgery
PROC: 0SRC069 Replacement of Right Knee Joint with Oxidized Zirconium on Polyethylene Synthetic Substitute, Cemented, Open Approach (ICD-10-PCS; principal; 2018-04-01 09:20)
DX: M17.11 Unilateral primary osteoarthritis, right knee (principal); Z68.41 Body mass index [BMI] 40.0-44.9, adult; M21.161 Varus deformity, not elsewhere classified, right knee; E11.9 Type 2 diabetes mellitus without complications; E66.01 Morbid (severe) obesity due to excess calories; E78.5 Hyperlipidemia, unspecified; I10 Essential (primary) hypertension; Z79.82 Long term (current) use of aspirin; Z79.84 Long term (current) use of oral hypoglycemic drugs; Z79.899 Other long term (current) drug therapy; Z80.0 Family history of malignant neoplasm of digestive organs; Z82.49 Family history of ischemic heart disease and other diseases of the circulatory system; Z83.3 Family history of diabetes mellitus; Z85.828 Personal history of other malignant neoplasm of skin; Z79.1 Long term (current) use of non-steroidal anti-inflammatories (NSAID); Z88.0 Allergy status to penicillin; Z88.2 Allergy status to sulfonamides; Z88.8 Allergy status to other drugs, medicaments and biological substances; K21.9 Gastro-esophageal reflux disease without esophagitis; S09.90XA Unspecified injury of head, initial encounter; W19.XXXA Unspecified fall, initial encounter; Y92.239 Unspecified place in hospital as the place of occurrence of the external cause
CPT/HCPCS: 70450; 83036; 85025; 88300

== ENCOUNTER → 2019-05-19 | Outpatient (CLI) | payer MEDICARE, BC ==
--- NOTE | 2019-05-19 23:33 | BD ---
EXAMINATION TYPE: Axial Bone Density DATE OF EXAM: 05/19/2019 COMPARISON: 2009 CLINICAL HISTORY: 64-year-old female asymptomatic menopausal screening Height: 5'4 Weight: 259 FRAX RISK QUESTIONS: Secondary Osteoporosis: RISK FACTORS HISTORY OF: Postmenopausal woman: y MEDICATIONS: Additional Medications: cholesterol, type 2 diabetes , reflux, blood pressure Additional History: skin cancer age 51 EXAM MEASUREMENTS: Bone mineral densitometry was performed using the Orthohub System. Bone mineral density as measured about the Lumbar spine is: ----- L1-L4(G/cm2): 1.446 T Score Values are as follows: ----- L2: 2.2 ----- L3: 3.5 ----- L4: 2.5 ----- L1-L4: 2.2 Bone mineral density has: Increased 4.4% since study of: 08/11/2010 Bone mineral density about the R hip (g/cm2): 0.825 Bone mineral density about the L hip (g/cm2): 0.755 T Score values are as follows: -----R Neck: -1.5 -----L Neck: -2.0 -----R Total: -0.3 -----L Total: -0.8 Bone mineral density has: Decreased -2.3% since study of: 08/11/2010 IMPRESSION: Osteopenia (T Score between -2.5 and -1). There is slightly increased risk of fracture and the patient may be considered for treatment. Re-Screen 2-5 years. NOTE: T-SCORE=SD OF THE YOUNG ADULT MEAN.
--- NOTE | 2019-05-20 13:12 | MM ---
Reason for exam: screening (asymptomatic). Last mammogram was performed 8 years and 9 months ago. History: Patient is postmenopausal and has history of other cancer at age 51. Benign excisional biopsy of the left breast. Took progesterone for 1 year 4 months. Physical Findings: A clinical breast exam by your physician is recommended on an annual basis and results should be correlated with mammographic findings. MG 3D Screening Mammo W/Cad Bilateral CC and MLO view(s) were taken. Prior study comparison: August 11, 2010, bilateral digital screening mammogram. November 23, 2008, bilateral digital screening mammogram. There are scattered fibroglandular densities. No suspicious abnormality. Central outer grouped subcentimeter masses at middle depth are stable back to 2005. No significant changes when compared with prior studies. ASSESSMENT: Benign, BI-RAD 2 RECOMMENDATION: Routine screening mammogram of both breasts in 1 year.
== END | disposition home or self-care (01) ==
LOC: RADMAMWWP 07:41
PROVIDERS: ATTEND Family Medicine
DX: Z12.31 Encounter for screening mammogram for malignant neoplasm of breast (principal); M85.80 Other specified disorders of bone density and structure, unspecified site; Z78.0 Asymptomatic menopausal state; Z80.3 Family history of malignant neoplasm of breast; Z85.828 Personal history of other malignant neoplasm of skin
CPT/HCPCS: 77063; 77067; 77080

== ENCOUNTER → 2019-08-07 | Outpatient (CLI) | payer MEDICARE, BC ==
[2019-08-07 12:41] LABS: HCT 38.4 % (34.0-46.0); HGB 12.4 gm/dL (11.4-16.0); MCHC 32.3 g/dL (31.0-37.0); MCV 83.6 fL (80.0-100.0); Mean Platelet Volume 6.5; Platelet Count 288 k/uL (150-450); RDW 13.6 % (11.5-15.5); WBC 6.4 k/uL (3.8-10.6)
[2019-08-07 12:49] LABS: Albumin 4.1 g/dL (3.5-5.0); Potassium 4.9 mmol/L (3.5-5.1); Total Bilirubin 0.6 mg/dL (0.2-1.3); Total Protein 7.1 g/dL (6.3-8.2)
[2019-08-07 12:56] LABS: Appearance,Urine Cloudy (Clear); Bilirubin,Urine Negative (Negative); Blood,Urine Negative (Negative); Color,Urine Yellow; Glucose,Urine (UA) Negative (Negative); Ketones,Urine Negative (Negative); Leukocyte Esterase,Urine Negative (Negative); Mucus,Urine Rare /hpf; Nitrite,Urine Negative (Negative); PH, Urine 6.5 (5.0-8.0); Protein,Urine Negative (Negative); RBC,Urine <1 /hpf (0-5); Specific Gravity,Urine 1.024 (1.001-1.035); Squamous Epithelial Cell,Urine 1 /hpf (0-4); Urobilinogen,Urine <2.0 mg/dL (<2.0); WBC,Urine <1 /hpf (0-5)
[2019-08-07 13:06] LABS: INR 0.9 (<1.2); Partial Thromboplastin Time 26.9 sec (22.0-30.0); Prothrombin Time 10.2 sec (9.0-12.0)
== END | disposition home or self-care (01) ==
LOC: LABPAT 11:45
PROVIDERS: ATTEND Orthopaedic Surgery
DX: Z01.818 Encounter for other preprocedural examination (principal); Z01.812 Encounter for preprocedural laboratory examination; M17.12 Unilateral primary osteoarthritis, left knee; Z79.01 Long term (current) use of anticoagulants
CPT/HCPCS: 36415; 80053; 81001; 85027; 85610; 85730; 87070; 93005

== ENCOUNTER 2019-08-19 11:52 | Day surgery (SDC) | payer MEDICARE, BC ==
[2019-08-11 15:32] VITALS: BMI 44.6
[~2019-08-19 11:52] MED LIST changes: +DEXAMETHASONE SOD PHOSPHATE 10 MG/ML 1 ML VIAL IV ONE; +GABAPENTIN 300 MG CAP PO ONE; +HYDROmorphone 0.5 MG/0.5 ML SYRINGE IVP PRN; +MIDAZOLAM 2 MG/2 ML VIAL IV PRN; +ONDANSETRON 4 MG/2 ML VIAL IVP ONE; -ROPIVACAINE 246.25 MG, EPINEPHrine 0.5 MG, KETOROLAC 30 MG, cloNIDine HCL/PF 80 MCG, WA... MISCELLANE ONE; +SCOPOLAMINE 1.5MG/72HR PATCH TRANSDERM ONE; +TRANEXAMIC ACID 1,000 MG in SODIUM CHLORIDE 0.9% 100 ML IVPB ONE; -TRANEXAMIC ACID 1,000 MG in SODIUM CHLORIDE 0.9% 50 ML IVPB ONE; -VANCOMYCIN 1,750 MG in SODIUM CHLORIDE 0.9% 250 ML IVPB ONE; +VANCOMYCIN 1,750 MG in SODIUM CHLORIDE 0.9% 500 ML 500 ML IVPB ONE
[2019-08-19] MEDS ORDERED: LIDOCAINE 1% 20 ML VIAL (10MG/ML) FOR IV START INTRADERMA ONE (12:55)
[2019-08-19] MEDS: LACTATED RINGERS 1,000 ML IV SCH (12:55)
[2019-08-19 13:04] LABS: Glucose,Whole Blood 113 mg/dL (75-99)
[2019-08-19] MEDS ORDERED: MIDAZOLAM PF (FBP) 2 MG/2 ML VIAL IVP ONE (13:37)
[2019-08-19] MEDS ORDERED: HYDROmorphone 0.5 MG/0.5 ML SYRINGE IVP PRN ×3 (13:44)
[2019-08-19] MEDS ORDERED: hydrOXYzine PAMOATE 25 MG CAP PO PRN (13:44)
[2019-08-19] MEDS ORDERED: BISACODYL 10 MG SUPP RECTAL PRN (13:44)
[2019-08-19] MEDS ORDERED: VANCOMYCIN 1,750 MG in SODIUM CHLORIDE 0.9% 250 ML IVPB ONE (13:44)
[2019-08-19] MEDS ORDERED: NA PHOS,M-B/NA PHOS,DI-BA 133 ML ENEMA RECTAL PRN (13:44)
[2019-08-19] MEDS ORDERED: NALOXONE 0.4 MG/ML 1 ML VIAL IV PRN (13:44)
[2019-08-19] MEDS ORDERED: MAGNESIUM HYDROXIDE 2,400 MG/10 ML CUP PO PRN (13:44)
[2019-08-19] MEDS ORDERED: ONDANSETRON 4 MG/2 ML VIAL IVP PRN (13:44)
[2019-08-19] MEDS ORDERED: HYDROcodone/APAP 5-325MG 1 EACH TAB PO PRN (13:44)
[2019-08-19] MEDS ORDERED: DIAZEPAM 5 MG TAB PO PRN (13:44)
[2019-08-19] MEDS ORDERED: ROPIVACAINE 0.2%-NS ON-Q PUMP 1,090 MG, EMPTY PAIN BALL 1 EACH MISCELLANE PRN (14:16)
--- NOTE | 2019-08-19 14:22 | P.ANPRN ---
Procedure Note - Anesthesia - Nerve Block Performed Left Adductor Canal Infusion Time Out Performed: Yes Date of Procedure: 08/19/19 Procedure Start Time: 13:35 Procedure Stop Time: 13:48 Location of Patient Procedure: PreOp Indication: Acute Post-Operative Pain, Requested by Surgeon Sedation Type: Sedate with meaningful contact maintained Preparation: Sterile Prep, Sterile Dressing Position: Supine Catheter: Indwelling Needle Types: Pajunk Needle Gauge: 18 Ultrasound used to visualize needle placement: Yes Ultrasound used to observe medication spread: Yes Injectate: 0.5% Ropivacaine (see comment for volume) (20 ML) Blood Aspirated: No Pain Paresthesia on Injection Noted: No Resistance on Injection: Normal Image Stored and Saved: Yes Events: Uneventful and Well Tolerated
[2019-08-19] MEDS ORDERED: fentaNYL (PF) 50 MCG/ML 2 ML AMP ONE (14:58)
[2019-08-19] MEDS ORDERED: TRANEXAMIC ACID 1,000 MG/10 ML VIAL ONE (14:58)
[2019-08-19] MEDS ORDERED: PROPOFOL 10 MG/ML 20 ML VIAL IV ONE (14:58)
[2019-08-19] MEDS ORDERED: SODIUM CHLORIDE 0.9% 250 ML BAG ONE (14:58)
[2019-08-19] MEDS ORDERED: diphenhydrAMINE 50 MG/ML 1 ML VIAL ONE (14:58)
[2019-08-19] MEDS ORDERED: MIDAZOLAM 2 MG/2 ML VIAL ONE (14:58)
[2019-08-19] MEDS ORDERED: KETAMINE 10 MG/ML 20 ML VIAL ONE (14:58)
[2019-08-19] MEDS ORDERED: ceFAZolin 3,000 MG in SODIUM CHLORIDE 0.9% IRRIGATIO 3,000 ML IRRIGATION ONE ×4 (15:02)
[2019-08-19] MEDS: ROPIVACAINE 246.25 MG, EPINEPHrine 0.5 MG, KETOROLAC 30 MG, cloNIDine HCL/PF 80 MCG, WA... MISCELLANE ONE ×10 (15:26→15:33)
--- NOTE | 2019-08-19 16:55 | P.OP ---
Date of Procedure: 08/19/19 Preoperative Diagnosis: Severe osteoarthritis left knee Postoperative Diagnosis: Severe osteoarthritis left knee Procedure(s) Performed: Left total knee arthroplasty Implants: [employer] II CR Oxinium cruciate retaining femoral component size 5, left [employer] Journey left nonporous tibial baseplate size 4 [employer] Journey II, XLPE Deep Dished articular insert, size 10 mm, Size 3-4 left [employer] BCS resurfacing oval patellar component, 29 mm All components were cemented using Palacos R bone cement.. The articulation is Oxinium on polyethylene. Anesthesia: spinal Surgeon: Kingston Sarkar Manufacturing Software Engineer #1: Beatrice Hughes Estimated Blood Loss (ml): 50 Pathology: other (Bone and cartilage) Condition: stable Disposition: PACU Indications for Procedure: After failure of conservative treatment we discussed the surgical and nonsurgical treatment options at length. Patient wishes to proceed with a total knee arthroplasty. Complications specific to this procedure were discussed at length, including but not limited to infection, bleeding, stiffness, and nerve injury. Patient is aware of all these complications and informed consent was obtained Operative Findings: The operative findings are consistent with severe osteoarthritis of the left knee Description of Procedure: Patient was seen in the preoperative area consent was reviewed and operative site was marked with a skin marker. An adductor canal pain catheter was placed by anesthesia in the preoperative area. Patient was then brought to the operating room and given preoperative antibiotics intravenously. A spinal anesthetic was administered by the anesthesia department. A tourniquet was placed on the upper thigh and the lower extremity was prepped and draped in usual sterile fashion. A gram of transexamic acid was given. A universal timeout was then performed which confirmed the patient's name, surgical site, ALLERGIES, and consent. The lower extremity was then exsanguinated and tourniquet was inflated to 250 mmHg. A standard and anterior midline approach to the knee was performed. The skin and subcutaneous tissue was dissected down to the patellar tendon. A medial parapatellar arthrotomy was then performed. The knee was then extended, the patellar was everted, and the knee was again flexed. Anterior horns of both menisci were excised, and a release was performed to the posterior medial aspect of the knee. On gross visual inspection, there was complete loss of articular cartilage in the medial and patellofemoral joint spaces. There was also significant cartilage damage in the lateral compartment. There were multiple periarticular osteophytes which were then removed with a Ronguer. The femoral canal was then opened with the appropriate drill, and the intramedullary femoral cutting guide was then placed and set for 5 of valgus. The distal femoral cutting block was then pinned in place, and the distal femur was then cut. The cutting block was then removed and the cut was checked for flatness. Next, the sizing guide was then placed and set for 3 external rotation based off of the epicondylar axis and Whitesides line. After the femur was sized, the appropriate 4-in-1 cutting block was then pinned in place. The anterior condyles were cut without notching. The posterior and chamfer cuts were performed while protecting the collateral ligaments. The cutting block was then removed, and the femoral canal was plugged with autologous bone. Attention was then directed to the tibia. The remaining ACL was removed with a Ronguer, and the tibia was then gently subluxed forward with a large bent knee retractor. Any remaining menisci was excised. The posterior lateral corner was cauterized in order to cauterize the lateral geniculate artery. The extra medullary tibial cutting guide was then placed, set for the appropriate rotation, slope, and depth of resection. The proximal tibia cutting guide was then pinned in place. Proximal tibia was then cut and sized. Next trials were then placed with the appropriate-sized insert. The knee was able to fully extend and flex to 130 and was stable throughout all range of motion. The knee was then extended, patella everted. Patella was then measured, and then using an osteotomy guide, the patella was cut at the appropriate level. The patella was then measured and drilled and the patella trial was then placed. The knee was then taken through range of motion with the patella trial and the patella tracked normally. The knee was then extended patella trial was then removed and the patella was everted. Knee was then flexed and lug holes were drilled through the femoral trial and the femoral trial was then removed. The tibial was then exposed, and the tibial broach guide was then pinned in place after it was set for the appropriate rotation to allow for the most coverage without overhang. The tibia was then reamed and broached. The cut surfaces of bone were then irrigated with pulsatile lavage. The posterior structures were injected with the ropivacaine solution. The knee was also irrigated with Irrisept solution. The components were then opened, the cement was mixed, and the components were then cemented in place. The cement was allowed to harden with the knee in full extension. While the cement was hardening, the remaining soft tissues were then injected with a ropivacaine solution, which consisted of 246.25 mg of ropivacaine, 0.5 mg of epinephrine, 30 mg of Toradol, 80 g of clonidine, and 48.45 mL of sterile water, for a total of 100 mL of fluid injected. After the cemented hardened. The tourniquet was released, and hemostasis was obtained. A second gram of transexamic acid was given. The knee was again irrigated. The knee was again taken through range of motion and found to be stable throughout all range of motion of 0-130, and the patella tracked normally. The fascia was then closed with #2 strata fix suture. The subcutaneous tissue was closed with 3-0 Vicryl and 3-0 strata fix. Dermabond glue was used for the skin and placed with the knee in flexion. The patient was placed in a sterile silver dressing. Patient was then transferred to recovery room in stable condition. The assistant drafter DIAMOND Mcneal was required due the complexity surgery and the need for a skilled surgical sales representative. She assisted in positioning, draping, retraction, and closure of the wound.
--- NOTE | 2019-08-19 17:55 | XR ---
EXAMINATION TYPE: XR knee limited LT DATE OF EXAM: 08/19/2019 COMPARISON: NONE HISTORY: Knee pain TECHNIQUE: 2 views FINDINGS: There is left knee prosthesis. Components are nontype position. IMPRESSION: No complicating process seen.
[2019-08-19 18:50] LABS: Glucose,Whole Blood 154 mg/dL (75-99)
[2019-08-19] MEDS ORDERED: SENNOSIDES-DOCUSATE SODIUM 1 EACH TAB PO SCH (21:00)
[2019-08-19] MEDS: SODIUM CHLORIDE 0.9% 1,000 ML IV SCH (21:13)
[2019-08-19] MEDS: ASPIRIN 325 MG TAB PO SCH (21:13)
[2019-08-20] MEDS ORDERED: VANCOMYCIN 1,750 MG in SODIUM CHLORIDE 0.9% 500 ML 500 ML IVPB ONE (01:00)
[2019-08-20] MEDS: LACTATED RINGERS 1,000 ML IV SCH (03:27)
[2019-08-20 07:06] LABS: Glucose,Whole Blood 145 mg/dL (75-99)
[2019-08-20] MEDS: INSULIN ASPART (NovoLOG) 100 UNIT/ML VIAL SQ SCH ×2 (07:37→14:01)
[2019-08-20] MEDS: ASPIRIN 325 MG TAB PO SCH (07:38)
[2019-08-20] MEDS: HYDROcodone/APAP 5-325MG 1 EACH TAB PO PRN ×2 (07:42→14:03)
--- NOTE | 2019-08-20 08:04 | P.DS ---
Providers Expected date of discharge: 08/20/19 Attending physician: Kingston Sarkar Consults: 08/19/19 13:44 Consult Physician Routine Consulting Provider: Alonzo Sherman Consult Reason/Comments: medical management Do you want consulting provider notified?: Yes [facility] Course: This is a 64-year-old female with known history of degenerative arthritis of the left knee. The patient presents for evaluation. After discussion and consideration patient elects to proceed with total knee arthroplasty. The patient is seen preoperatively by Dr. Sarkar and medically cleared for surgery by their primary care physician. Patient is admitted to [facility] on 08/19/2019 for total knee arthroplasty. The procedures performed without complication or sequelae. The patient is doing well postoperatively. Labs and vital signs are stable on day of discharge. On day of discharge patient's knee incision is healing well. There is minimal erythema. There is no drainage noted at this time. There is minimal soft tissue swelling to the knee. Patient has full foot and ankle motion without difficulty or pain. Calf is soft and nontender to palpation. Neurovascular status to the left lower extremity is intact. Patient is discharged home in good condition. Opioid start talking form is reviewed and signed at patient bedside. Please see med rec for accurate list of home medications. Plan - Discharge Summary Discharge Rx Participant: Yes New Discharge Prescriptions: New Aspirin 325 mg PO BID #60 tab Sennosides [Senokot] 1 tab PO BID #60 tablet HYDROcodone/APAP 5-325MG [[place] 5-325] 1 - 2 tab PO Q6HR PRN #56 tab PRN Reason: Pain No Action Lansoprazole [Prevacid] 15 mg PO DAILY Ibuprofen [Motrin] 200 mg PO DAILY PRN PRN Reason: Pain Aspirin 81 mg PO DAILY sitaGLIPtin [Januvia] 100 mg PO DAILY metFORMIN HCL ER [Glucophage Xr] 1,000 mg PO DAILY Pravastatin Sodium [Pravachol] 40 mg PO DAILY Potassium 99 mg PO BID Acetaminophen Tab [Tylenol Tab] 1,000 mg PO Q6HR metFORMIN HCL [Glucophage] 500 mg PO HS Losartan Potassium [Cozaar] 100 mg PO DAILY Calcium Carbonate [Calcium] 600 mg PO DAILY Diclofenac Sodium [Voltaren Gel] 2 gram TOPICAL DAILY PRN PRN Reason: Pain Discharge Medication List Aspirin 81 mg PO DAILY 05/26/17 [History] Ibuprofen [Motrin] 200 mg PO DAILY PRN 05/26/17 [History] Lansoprazole [Prevacid] 15 mg PO DAILY 05/26/17 [History] Pravastatin Sodium [Pravachol] 40 mg PO DAILY 05/26/17 [History] metFORMIN HCL ER [Glucophage Xr] 1,000 mg PO DAILY 05/26/17 [History] sitaGLIPtin [Januvia] 100 mg PO DAILY 05/26/17 [History] Potassium 99 mg PO BID 03/22/18 [History] Acetaminophen Tab [Tylenol Tab] 1,000 mg PO Q6HR 04/01/18 [History] Calcium Carbonate [Calcium] 600 mg PO DAILY 08/11/19 [History] Diclofenac Sodium [Voltaren Gel] 2 gram TOPICAL DAILY PRN 08/11/19 [History] Losartan Potassium [Cozaar] 100 mg PO DAILY 08/11/19 [History] metFORMIN HCL [Glucophage] 500 mg PO HS 08/11/19 [History] Aspirin 325 mg PO BID #60 tab 08/19/19 [Rx] Sennosides [Senokot] 1 tab PO BID #60 tablet 08/19/19 [Rx] HYDROcodone/APAP 5-325MG [[place] 5-325] 1 - 2 tab PO Q6HR PRN #56 tab 08/20/19 [Rx] Follow up Appointment(s)/Referral(s): Kingston Sarkar DO [Doctor of Osteopathic Medicine] - 2 Weeks Ambulatory/Diagnostic Orders: Continuous Passive Motion (CPM) Machine [DME.AMB1] Time Frame: 3 Weeks, Location: None Selected Activity/Diet/Wound Care/Special Instructions: Weightbearing as tolerated with a walker. CPM 5-6h daily. Leave dressing intact. May be removed by home care nurse or by patient in 10 days. May shower with dressing on. Recommend use of compression stockings daily for at least 2 weeks during the day to help prevent swelling and blood clots. May remove at night before sleeping. Please follow up with [facility] and call with any questions or concerns, . Discharge Disposition: HOME WITH HOME HEALTH SERVICES
--- NOTE | 2019-08-20 08:18 | P.PN ---
Progress Note - Text Progress Note Date: 08/20/19 Patient is without complaints. Denies pain. Denies leg weakness. VSS Left adductor catheter site clean and dry A/P POD#1 s/p L TKA - doing well
[2019-08-20 08:22] LABS: Basophils # (A) 0.1 k/uL (0-0.2); Basophils % (A) 1 %; Eosinophils % (A) 0 %; HCT 34.6 % (34.0-46.0); HGB 10.4 gm/dL (11.4-16.0); Hypochromasia Slight; Lymphocytes # (A) 0.7 k/uL (1.0-4.8); Lymphocytes % (A) 7 %; MCH 27.1 pg (25.0-35.0); MCHC 30.2 g/dL (31.0-37.0); Mean Platelet Volume 7.6; Monocytes # (A) 0.4 k/uL (0-1.0); Monocytes % (A) 4 %; Neutrophils # (A) 9.5 k/uL (1.3-7.7); Neutrophils % (A) 88 %; Platelet Count 282 k/uL (150-450); RBC 3.85 m/uL (3.80-5.40); RDW 13.9 % (11.5-15.5); WBC 10.7 k/uL (3.8-10.6)
[2019-08-20 08:59] VITALS: TEMP 97.6
[2019-08-20] MEDS ORDERED: CALCIUM CARBONATE 500 MG CHEWABLE PO SCH (09:00)
[2019-08-20] MEDS ORDERED: metFORMIN 500 MG TAB PO SCH ×2 (09:00→21:00)
[2019-08-20] MEDS ORDERED: MELOXICAM 7.5 MG TAB PO SCH (09:00)
[2019-08-20] MEDS ORDERED: LINAGLIPTIN 5 MG TABLET PO SCH (09:00)
[2019-08-20] MEDS ORDERED: PRAVASTATIN SODIUM 40 MG TAB PO SCH (09:00)
[2019-08-20] MEDS ORDERED: LOSARTAN 50 MG TAB PO SCH (09:00)
[2019-08-20] MEDS: SODIUM CHLORIDE 0.9% 1,000 ML IV SCH ×2 (10:35→14:02)
[2019-08-20 12:10] LABS: Glucose,Whole Blood 137 mg/dL (75-99)
[2019-08-20 14:00] VITALS: BP 139/69; PULSE 64; RESP 18
--- NOTE | 2019-08-20 22:18 | P.CONS ---
History of Present Illness - Reason for Consult Consult date: 08/20/19 Medical management Requesting physician: Kingston Sarkar - Chief Complaint Left knee surgery - History of Present Illness Consultation: This is a pleasant 64-year-old patient of Dr. Hays. Chronic stable medical conditions include diabetes, GERD, hypertension, hyperlipidemia and Iftikhar arthritis. Patient did undergo left total knee arthroplasty. Pain is controlled. Did work with therapy. No nausea vomiting. No chest pain or short of breath. Denies any cardiac history. Feeling well. No new issues. Review of systems: GEN.: None EYES: None HEENT: None NECK: None RESPIRATORY: None CARDIOVASCULAR: None GASTROINTESTINAL: None GENITOURINARY: None MUSCULOSKELETAL: Pain in joints LYMPHATICS: None HEMATOLOGICAL: None PSYCHIATRY: None NEUROLOGICAL: None Social history: Does not smoke. Alcohol occasional. Physical examination: VITAL SIGNS: 97.6, 78, 12, 11 9/60, 95% room air GENERAL: BMI 44.9, sitting up, comfortable. EYES: Pupils equal. Conjunctiva normal. HEENT: External appearance of nose and ears normal, oral cavity grossly normal. NECK: JVD not raised; masses not palpable. HEART: First and second heart sounds are normal; no edema. LUNGS: Respiratory rate normal; clear to auscultation. ABDOMEN: Soft, nontender, liver spleen not palpable, no masses palpable. PSYCH: Alert and oriented x3; mood and affect normal. NEUROLOGICAL: Cranial nerves grossly intact; no facial asymmetry, power and sensation grossly intact. LYMPHATICS: No lymph nodes palpable in the axilla and neck MUSCULOSKELETAL: Dressing over the left knee. Evidence of OA in the hands INVESTIGATIONS, reviewed in the clinical context: White count 10.7 hemoglobin 10.4 Labs from August 07: Hemoglobin 12.6 crit 0.9 Assessment: -Left total knee arthroplasty -Diabetes mellitus type 2 on oral hypoglycemic -GERD -Essential hypertension -Hyperlipidemia -Primary osteoarthritis -Acute postop blood loss anemia as especially from surgery Plan: Patient doing well. Care was discussed with the patient. Should follow with Dr. Hays upon discharge. Thank you Dr. Sarkar Past Medical History Past Medical History: Cancer, Diabetes Mellitus, GERD/Reflux, Hyperlipidemia, Hypertension, Osteoarthritis (OA) Additional Past Medical History / Comment(s): basal skin cancer on face History of Any Multi-Drug Resistant Organisms: MRSA Year Discovered:: 11/12/17 MDRO Source:: RT LEG Past Surgical History: Section, Joint Replacement, Orthopedic Surgery Additional Past Surgical History / Comment(s): breast biopsy, skin CA, rt knee replacement Past Anesthesia/Blood Transfusion Reactions: Postoperative Nausea & Vomiting (PONV) Past Psychological History: No Psychological Hx Reported Smoking Status: Never smoker Past Alcohol Use History: Occasional Past Drug Use History: None Reported - Past Family History Mother Family Medical History: Cancer, Diabetes Mellitus, Myocardial Infarction (DE) Additional Family Medical History / Comment(s): pancreatic Father Family Medical History: Cancer Additional Family Medical History / Comment(s): kidney Daughter(s) Family Medical History: Cancer Additional Family Medical History / Comment(s): thyroid, amloydosis Medications and Allergies Home Medications Medication Instructions Recorded Confirmed Type Aspirin 81 mg PO DAILY 05/26/17 08/11/19 History Ibuprofen [Motrin] 200 mg PO DAILY PRN 05/26/17 08/11/19 History Lansoprazole [Prevacid] 15 mg PO DAILY 05/26/17 08/11/19 History Pravastatin Sodium [Pravachol] 40 mg PO DAILY 05/26/17 08/11/19 History metFORMIN HCL ER [Glucophage Xr] 1,000 mg PO DAILY 05/26/17 08/11/19 History sitaGLIPtin [Januvia] 100 mg PO DAILY 05/26/17 08/11/19 History Potassium 99 mg PO BID 03/22/18 08/11/19 History Acetaminophen Tab [Tylenol Tab] 1,000 mg PO Q6HR 04/01/18 08/11/19 History Calcium Carbonate [Calcium] 600 mg PO DAILY 08/11/19 08/11/19 History Diclofenac Sodium [Voltaren Gel] 2 gram TOPICAL DAILY PRN 08/11/19 08/11/19 History Losartan Potassium [Cozaar] 100 mg PO DAILY 08/11/19 08/11/19 History metFORMIN HCL [Glucophage] 500 mg PO HS 08/11/19 08/11/19 History Aspirin 325 mg PO BID #60 tab 08/19/19 Rx Sennosides [Senokot] 1 tab PO BID #60 tablet 08/19/19 Rx HYDROcodone/APAP 5-325MG [[place] 1 - 2 tab PO Q6HR PRN #56 tab 08/20/19 Rx 5-325] Allergies Allergy/AdvReac Type Severity Reaction Status Date / Time azithromycin Allergy Rash/Hives Verified 08/19/19 12:29 erythromycin base Allergy Nausea & Verified 08/19/19 12:29 Vomiting Penicillins Allergy Rash/Hives Verified 08/19/19 12:29 Sulfa (Sulfonamide Allergy Rash/Hives Verified 08/19/19 12:29 Antibiotics) sulfamethoxazole Allergy Rash/Hives Verified 08/19/19 12:29 [From Septra] trimethoprim [From Septra] Allergy Rash/Hives Verified 08/19/19 12:29 cephalexin [From Keflex] AdvReac Nausea & Verified 08/19/19 12:29 Vomiting Physical Exam Vitals: Vital Signs Temp Pulse Pulse Resp BP Pulse Ox 08/20/19 07:00 97.6 F 78 12 119/60 95 08/20/19 01:41 98.0 F 75 18 116/68 95 08/19/19 21:06 82 18 145/76 97 08/19/19 20:51 76 18 123/68 90 L 08/19/19 20:36 76 18 139/72 93 L 08/19/19 20:21 82 18 145/75 94 L 08/19/19 20:06 81 18 153/79 96 08/19/19 19:51 76 18 133/69 96 08/19/19 19:36 77 18 152/73 97 08/19/19 19:21 97.8 F 85 18 162/79 98 08/19/19 18:46 79 16 144/59 97 08/19/19 18:15 79 16 132/60 97 08/19/19 17:46 77 16 121/44 92 L 08/19/19 17:30 84 16 125/53 92 L 08/19/19 17:15 86 18 165/63 92 L 08/19/19 16:57 97.4 F L 99 16 179/59 95 08/19/19 13:58 72 16 172/80 99 08/19/19 12:46 203/84 08/19/19 12:43 97.8 F 84 16 220/85 99 Intake and Output 08/19/19 08/20/19 08/20/19 22:59 06:59 14:59 Intake Total 926 600 Output Total 50 250 Balance 876 350 Intake: IV 701 Intake, IV Titration 225 600 Amount Sodium Chloride 0.9% 1, 225 600 000 ml @ 75 mls/hr IV . [id number] [facility] Rx#:[id number] Output: Urine 250 Estimated Blood Loss 50 Results CBC & Chem 7: 08/20/19 07:14 Labs: Abnormal Lab Results - Last 24 Hours (Table) 08/19/19 08/19/19 08/20/19 Range/Units 13:02 18:48 07:02 WBC (3.8-10.6) k/uL Hgb (11.4-16.0) gm/dL MCHC (31.0-37.0) g/dL Neutrophils # (1.3-7.7) k/uL Lymphocytes # (1.0-4.8) k/uL POC Glucose (mg/dL) 113 H 154 H 145 H (75-99) mg/dL 08/20/19 Range/Units 07:14 WBC 10.7 H (3.8-10.6) k/uL Hgb 10.4 L (11.4-16.0) gm/dL MCHC 30.2 L (31.0-37.0) g/dL Neutrophils # 9.5 H (1.3-7.7) k/uL Lymphocytes # 0.7 L (1.0-4.8) k/uL POC Glucose (mg/dL) (75-99) mg/dL
== END 2019-08-20 16:54 | disposition home health service (06) ==
LOC: OR 11:52 → 4SSUR 16:54 → OR 08-20 16:54
PROVIDERS: ATTEND Orthopaedic Surgery
DX: M17.12 Unilateral primary osteoarthritis, left knee (principal); M21.062 Valgus deformity, not elsewhere classified, left knee; M25.762 Osteophyte, left knee; I10 Essential (primary) hypertension; E11.9 Type 2 diabetes mellitus without complications; E78.5 Hyperlipidemia, unspecified; K21.9 Gastro-esophageal reflux disease without esophagitis; Z86.14 Personal history of Methicillin resistant Staphylococcus aureus infection; Z85.828 Personal history of other malignant neoplasm of skin; Z96.651 Presence of right artificial knee joint; Z83.3 Family history of diabetes mellitus; Z82.49 Family history of ischemic heart disease and other diseases of the circulatory system; Z80.51 Family history of malignant neoplasm of kidney; Z80.0 Family history of malignant neoplasm of digestive organs; Z79.84 Long term (current) use of oral hypoglycemic drugs; Z79.1 Long term (current) use of non-steroidal anti-inflammatories (NSAID); Z79.82 Long term (current) use of aspirin; Z79.891 Long term (current) use of opiate analgesic; Z79.899 Other long term (current) drug therapy; Z88.1 Allergy status to other antibiotic agents; Z88.0 Allergy status to penicillin; Z88.2 Allergy status to sulfonamides; Z88.8 Allergy status to other drugs, medicaments and biological substances
CPT/HCPCS: 27447; 97161; 64448; 76942; 85025; 88300; 73560; C1713; C1776; J2250 ×2; J0171; J3370 ×2; J1200; J1100; J2405; J0690; J3010; J1885; J2795 ×2; J2704; J0735

== ENCOUNTER 2019-08-28 06:34 | Emergency (ER) | payer MEDICARE, BC ==
[2019-08-28 06:50] VITALS: RESP 18; TEMP 98.2
[2019-08-28] MEDS ORDERED: SODIUM CHLORIDE 0.9% 500 ML 500 ML IV STA (07:03)
[2019-08-28] MEDS ORDERED: MORPHINE SULFATE 4 MG/ML SYRINGE IV STA (07:03)
[2019-08-28] MEDS ORDERED: HYDROmorphone 0.5 MG/0.5 ML SYRINGE IVP STA (07:21)
--- NOTE | 2019-08-28 07:31 | ED ---
General Adult HPI - General Chief complaint: Extremity Problem,Nontraumatic Stated complaint: Post Knee Replacement Complications Time Seen by Provider: 08/28/19 07:03 Source: patient Mode of arrival: wheelchair Limitations: no limitations - History of Present Illness Initial comments: Dictation was produced using [employer] dictation software. please excuse any grammatical, word or spelling errors. Chief Complaint: 64-year-old female with past medical history diabetes, dyslipidemia hypertension presents with left knee pain History of Present Illness: Is 64-year-old female she is 7 days postop from total knee replacement of the left knee. Patient had total knee replacement done by Dr. Sarkar. Patient reports that postop of she develop minor bleeding complications to the incision site. She was put on bed rest. Today she expe rience her first day of physical therapy postoperatively. Patient states that since the physical therapy her knee pain has been much worse. Patient does have pain medications at home but feels as though pain medications do not provide her any relief. Patient denies any fever, chills or night sweats. She does complain of some pain in the posterior calf and popliteal area. She denies any shortness of breath. Patient does not take any anticoagulation medications. Patient states that her pain is at rest and worse with movement. Denies any fever, chills or night sweats. No numbness and paresthesias to the lower extremity. Denies any pain to the incisional site. She called on-call ortho pedic surgeon who was Dr. Maldonado this morning. She was instructed come to the emergency department if her symptoms were severe. The ROS documented in this emergency department record has been reviewed and confirmed by me. Those systems with pertinent positive or negative responses have been documented in the HPI. All other systems are other negative and/or noncontributory. PHYSICAL EXAM: General Impression: Alert and oriented x3, not in acute distress HEENT: Normocephalic atraumatic, extra-ocular movements intact, pupils equal and reactive to light bilaterally, mucous membranes moist. Cardiovascular: Heart regular rate and rhythm, S1&S2 audible, no murmurs, rubs or gallops Chest: Lungs clear to auscultation bilaterally, no rhonchi, no wheeze, no rales Abdomen: Bowel sounds present, abdomen soft, non-tender, non-distended, no organomegaly Musculoskeletal: Pulses present and equal in all extremities, no peripheral edema Left knee: Incisional site intact without any bleeding or significant erythema. No drainage. No tenderness with palpation over the surgical site. Mild tenderness to the calf area, popliteal area. Patient's knees ranged with mild tenderness. Motor: no focal deficits noted Neurological: CN II-XII grossly intact, no focal motor or sensory deficits noted Skin: Intact with no visualized rashes Psych: Normal affect and mood ED course: 64-year-old female presents with postoperative knee pain. Patient is 6 days postop from total knee replacement. She did have pain worsened after physical therapy yesterday. Vital signs upon arrival are within acceptable l imits. Patient's otherwise well-appearing. Patient's symptoms are likely secondary to postsurgical pain after having first day of physical therapy status post total knee replacement. There is very low clinical suspicion for infectious process at this time given that knee is able to be arranged with minimal complication. Furthermore, there is no signs of infection. There is some clinical suspicion of deep venous thrombosis given the patient does have posterior lower extremity pain. Ultrasound ordered. Laboratory evaluation obtained. CBC, panel is grossly unremarkable. No significant abnormalities. Knee x-ray shows moderate left suprapatellar effusion and some minimal bicep cutaneous edema likely postoperative. Venous Doppler unremarkable for the venous thrombosis. There was incidental finding of a nonvascular lesion measuring 2 cm in the left groin. Patient was notified of these results. She is told to follow-up with her primary care physician regarding these incidental findings. Patient reevaluated bedside with improvement of symptoms. Patient given prescription for by mouth analgesia take when necessary severe pain. Patient to be discharge. Told to follow up with orthopedic surgeon. Patient understandable agreeable to disposition. - Related Data Home Medications Medication Instructions Recorded Confirmed Lansoprazole [Prevacid] 15 mg PO DAILY 05/26/17 08/28/19 Pravastatin Sodium [Pravachol] 40 mg PO DAILY 05/26/17 08/28/19 metFORMIN HCL ER [Glucophage Xr] 1,000 mg PO DAILY 05/26/17 08/28/19 sitaGLIPtin [Januvia] 100 mg PO DAILY 05/26/17 08/28/19 Potassium 99 mg PO BID 03/22/18 08/28/19 Acetaminophen Tab [Tylenol Tab] 1,000 mg PO Q6HR PRN 04/01/18 08/28/19 Calcium Carbonate [Calcium] 600 mg PO DAILY 08/11/19 08/28/19 Diclofenac Sodium [Voltaren Gel] 2 gram TOPICAL DAILY PRN 08/11/19 08/28/19 Losartan Potassium [Cozaar] 100 mg PO DAILY 08/11/19 08/28/19 metFORMIN HCL [Glucophage] 500 mg PO HS 08/11/19 08/28/19 Previous Rx's Medication Instructions Recorded Aspirin 325 mg PO BID #60 tab 08/19/19 Sennosides [Senokot] 1 tab PO BID #60 tablet 08/19/19 HYDROcodone/APAP 5-325MG [Pollock 1 - 2 tab PO Q6HR PRN #56 tab 08/20/19 5-325] HYDROmorphone [Dilaudid] 1 mg PO Q4HR PRN #9 tab 08/28/19 Allergies Allergy/AdvReac Type Severity Reaction Status Date / Time azithromycin Allergy Rash/Hives Verified 08/28/19 08:44 Penicillins Allergy Rash/Hives Verified 08/28/19 08:44 Sulfa (Sulfonamide Allergy Rash/Hives Verified 08/28/19 08:44 Antibiotics) sulfamethoxazole Allergy Rash/Hives Verified 08/28/19 08:44 [From Septra] trimethoprim [From Septra] Allergy Rash/Hives Verified 08/28/19 08:44 cephalexin [From Keflex] AdvReac Nausea & Verified 08/28/19 08:44 Vomiting erythromycin base AdvReac Nausea & Verified 08/28/19 08:44 Vomiting Review of Systems ROS Statement: Those systems with pertinent positive or pertinent negative responses have been documented in the HPI. ROS Other: All systems not noted in ROS Statement are negative. Past Medical History Past Medical History: Cancer, Diabetes Mellitus, GERD/Reflux, Hyperlipidemia, Hypertension, Osteoarthritis (OA) Additional Past Medical History / Comment(s): basal skin cancer on face History of Any Multi-Drug Resistant Organisms: MRSA Date of last positivie culture/infection: 11/12/17 MDRO Source:: RT LEG Past Surgical History: Section, Joint Replacement, Orthopedic Surgery Additional Past Surgical History / Comment(s): breast biopsy, skin CA, rt knee replacement Past Anesthesia/Blood Transfusion Reactions: Postoperative Nausea & Vomiting (PONV) Past Psychological History: No Psychological Hx Reported Smoking Status: Never smoker Past Alcohol Use History: Occasional Past Drug Use History: None Reported - Past Family History Mother Family Medical History: Cancer, Diabetes Mellitus, Myocardial Infarction ([place]) Additional Family Medical History / Comment(s): pancreatic Father Family Medical History: Cancer Additional Family Medical History / Comment(s): kidney Daughter(s) Family Medical History: Cancer Additional Family Medical History / Comment(s): thyroid, amloydosis General Exam Limitations: no limitations Course Vital Signs 08/28/19 06:47 Temperature 98.2 F Pulse Rate 82 Respiratory 18 Rate Blood Pressure 148/69 O2 Sat by Pulse 100 Oximetry Medical Decision Making - Lab Data Result diagrams: 08/28/19 07:30 08/28/19 07:30 Lab Results 08/28/19 08/28/19 Range/Units 07:30 07:30 WBC 8.6 (3.8-10.6) k/uL RBC 3.58 L (3.80-5.40) m/uL Hgb 9.8 L (11.4-16.0) gm/dL Hct 30.8 L (34.0-46.0) % MCV 85.9 (80.0-100.0) fL MCH 27.3 (25.0-35.0) pg MCHC 31.8 (31.0-37.0) g/dL RDW 14.2 (11.5-15.5) % Plt Count 473 H (150-450) k/uL Neutrophils % 84 % Lymphocytes % 6 % Monocytes % 5 % Eosinophils % 2 % Basophils % 1 % Neutrophils # 7.3 (1.3-7.7) k/uL Lymphocytes # 0.5 L (1.0-4.8) k/uL Monocytes # 0.5 (0-1.0) k/uL Eosinophils # 0.1 (0-0.7) k/uL Basophils # 0.1 (0-0.2) k/uL Sodium 132 L (137-145) mmol/L Potassium 4.8 (3.5-5.1) mmol/L Chloride 97 L (98-107) mmol/L Carbon Dioxide 22 (22-30) mmol/L Anion Gap 13 mmol/L BUN 16 (7-17) mg/dL Creatinine 0.53 (0.52-1.04) mg/dL Est GFR (CKD-EPI)AfAm >90 (>60 ml/min/1.73 sqM) Est GFR (CKD-EPI)NonAf >90 (>60 ml/min/1.73 sqM) Glucose 168 H (74-99) mg/dL Calcium 9.7 (8.4-10.2) mg/dL Total Bilirubin 1.1 (0.2-1.3) mg/dL AST 32 (14-36) U/L ALT 38 (9-52) U/L Alkaline Phosphatase 115 (38-126) U/L Total Protein 6.9 (6.3-8.2) g/dL Albumin 3.6 (3.5-5.0) g/dL Disposition Clinical Impression: Knee pain Disposition: HOME SELF-CARE Condition: Good Instructions (If sedation given, give patient instructions): Pain Management in Older Adults ([facility]) Prescriptions: HYDROmorphone [Dilaudid] 1 mg PO Q4HR PRN #9 tab PRN Reason: Severe Pain Is patient prescribed a controlled substance at d/c from ED?: Yes Referrals: Kingston Sarkar DO [Doctor of Osteopathic Medicine] - 1-2 days Time of Disposition: 10:10
[2019-08-28 07:53] LABS: Basophils # (A) 0.1 k/uL (0-0.2); Basophils % (A) 1 %; Eosinophils # (A) 0.1 k/uL (0-0.7); Eosinophils % (A) 2 %; HCT 30.8 % (34.0-46.0); HGB 9.8 gm/dL (11.4-16.0); Lymphocytes # (A) 0.5 k/uL (1.0-4.8); Lymphocytes % (A) 6 %; MCH 27.3 pg (25.0-35.0); MCHC 31.8 g/dL (31.0-37.0); MCV 85.9 fL (80.0-100.0); Mean Platelet Volume 6.6; Monocytes # (A) 0.5 k/uL (0-1.0); Monocytes % (A) 5 %; Neutrophils # (A) 7.3 k/uL (1.3-7.7); Neutrophils % (A) 84 %; Platelet Count 473 k/uL (150-450); RBC 3.58 m/uL (3.80-5.40); RDW 14.2 % (11.5-15.5); WBC 8.6 k/uL (3.8-10.6)
--- NOTE | 2019-08-28 07:58 | XR ---
EXAMINATION TYPE: XR knee complete LT DATE OF EXAM: 08/28/2019 CLINICAL HISTORY: Left knee pain after recent knee replacement TECHNIQUE: Three views of the left knee are obtained. COMPARISON: None. FINDINGS: There is no acute fracture/dislocation evident in left knee. The tri-compartment joint sp aces appear within normal limits. There is minimal subcutaneous edema of the lateral left thigh. Comp lete left knee arthroplasty maintains normal alignment without hardware fracture. No lucency surround s the left knee prosthesis. No subcutaneous emphysema. No [place] bone fracture. There is a small to m oderate suprapatellar joint effusion. IMPRESSION: 1. Small to moderate left suprapatellar joint effusion and minimal lateral thigh subcutaneous edema. 2. No malalignment, radiographic evidence of loosening, or fracture of the left knee arthroplasty nor adjacent [place] bone.
[2019-08-28 08:08] LABS: ALT 38 U/L (9-52); AST 32 U/L (14-36); African American GFR (CKD) >90 (>60 ml/min/1.73 sqM); Albumin 3.6 g/dL (3.5-5.0); Alkaline Phosphatase 115 U/L (38-126); Anion Gap 13 mmol/L; Blood Urea Nitrogen 16 mg/dL (7-17); Calcium 9.7 mg/dL (8.4-10.2); Carbon Dioxide 22 mmol/L (22-30); Chloride 97 mmol/L (98-107); Glucose 168 mg/dL (74-99); Sodium 132 mmol/L (137-145); Total Bilirubin 1.1 mg/dL (0.2-1.3); Total Protein 6.9 g/dL (6.3-8.2)
[2019-08-28 08:11] LABS: Potassium 4.8 mmol/L (3.5-5.1)
--- NOTE | 2019-08-28 09:50 | US ---
EXAMINATION TYPE: US venous doppler duplex LE LT DATE OF EXAM: 08/28/2019 9:27 AM COMPARISON: NONE CLINICAL HISTORY: rule out dvt. Aspirin x 2 a day. Knee replacement x 1 week ago. Pain. SIDE PERFORMED: Left TECHNIQUE: The lower extremity deep venous system is examined utilizing real time linear array sonog gena with graded compression, doppler sonography and color-flow sonography. VESSELS IMAGED: External Iliac Vein (EIV) Common Femoral Vein Deep Femoral Vein Greater Saphenous Vein * Femoral Vein Popliteal Vein Small Saphenous Vein * Proximal Calf Veins (* superficial vessels) Left Leg: Negative for DVT. In left groin, anterior to EIV, prominent heterogenous nonvascular lesi on visualized = 2.3 x 1.8 x 1.1 cm. IMPRESSION: 1. No diagnostic evidence of DVT as visualized. 2. There is a soft tissue mass left groin measuring 2.3 cm which is nonspecific. Difficult to determi ne if this is related to hematoma or possibly soft tissue mass correlate clinically. Further evaluati on with CT scan on a short-term basis could be performed.
[2019-08-28 10:22] VITALS: BP 122/81; PULSE 68
== END 2019-08-28 10:22 | disposition home or self-care (01) ==
LOC: EC 06:34
DX: M25.562 Pain in left knee (principal); M25.462 Effusion, left knee; M79.662 Pain in left lower leg; L98.9 Disorder of the skin and subcutaneous tissue, unspecified; E11.9 Type 2 diabetes mellitus without complications; K21.9 Gastro-esophageal reflux disease without esophagitis; E78.5 Hyperlipidemia, unspecified; I10 Essential (primary) hypertension; M19.90 Unspecified osteoarthritis, unspecified site; Z86.14 Personal history of Methicillin resistant Staphylococcus aureus infection; Z79.1 Long term (current) use of non-steroidal anti-inflammatories (NSAID); Z96.653 Presence of artificial knee joint, bilateral; Z85.828 Personal history of other malignant neoplasm of skin; Z79.84 Long term (current) use of oral hypoglycemic drugs; Z79.899 Other long term (current) drug therapy; Z88.1 Allergy status to other antibiotic agents; Z88.0 Allergy status to penicillin; Z88.2 Allergy status to sulfonamides; Z53.8 Procedure and treatment not carried out for other reasons
CPT/HCPCS: 36415; 80053; 85025; 73562; 93971; 99284; 96374; 96361; J1170

== ENCOUNTER → 2021-08-30 | Outpatient (CLI) | payer MEDICARE ==
--- NOTE | 2021-08-30 15:43 | XR ---
EXAMINATION TYPE: XR chest 2V DATE OF EXAM: 08/30/2021 COMPARISON: NONE TECHNIQUE: PA and lateral views submitted. HISTORY: Cough FINDINGS: The lungs are clear and there is no pneumothorax, pleural effusion, or focal pneumonia. Atheroscler otic change aorta. Heart size normal. No overt failure. Hypertrophic and degenerative change spine. H yperinflation suggests COPD. Biapical pleural thickening. Findings suggest a small hiatal hernia. IMPRESSION: 1. No acute process. 2. Small hiatal hernia.
== END | disposition home or self-care (01) ==
LOC: RADXRWHC 15:00
PROVIDERS: ATTEND Internal Medicine
DX: K44.9 Diaphragmatic hernia without obstruction or gangrene (principal); R05.9 Cough, unspecified
CPT/HCPCS: 71046

== ENCOUNTER → 2021-12-20 | Outpatient (CLI) | payer MEDICARE | END | disposition home or self-care (01) | LOC: LABWHC1 11:53 | PROVIDERS: ATTEND Internal Medicine Critical Care Medicine | DX: R05.3 Chronic cough (principal); J30.2 Other seasonal allergic rhinitis | CPT/HCPCS: 36415; 82785; 85008; 86003 ==

== ENCOUNTER → 2023-03-06 | Outpatient (CLI) | payer MEDICARE ==
--- NOTE | 2023-03-06 11:44 | US ---
EXAMINATION TYPE: US carotid duplex BILAT DATE OF EXAM: 03/06/2023 COMPARISON: NONE CLINICAL INDICATION: Female, 68 years old with history of I65.23 OCCLUSION AND STENOSIS OF BILATERAL CAROTID ARTERIES; baseline to assess stenosis, no stroke, no symptoms TECHNIQUE: Carotid duplex ultrasound examination. Indirect Doppler criteria was utilized. FINDINGS: EXAM MEASUREMENTS: RIGHT: Peak Systolic Velocity (PSV) cm/sec ----- Right CCA: 65.0 ----- Right ICA: 88.1 ----- Right ECA: 149 ICA/CCA ratio: 1.4 RIGHT: End Diastole cm/sec ----- Right CCA: 14.3 ----- Right ICA: 25.7 ----- Right ECA: 13.1 LEFT: Peak Systolic Velocity (PSV) cm/sec ----- Left CCA: 69.5 ----- Left ICA: 82.2 ----- Left ECA: 76.7 ICA/CCA ratio: 1.2 LEFT: End Diastole cm/sec ----- Left CCA: 13.6 ----- Left ICA: 23.9 ----- Left ECA: 0.0 VERTEBRALS (direction of flow): Right Vertebral: Antegrade Left Vertebral: Antegrade Rhythm: Normal AIR B[employer]KE RIGGER NOTES: Mild heterogeneous plaque with no significant stenosis IMPRESSION: No evidence for hemodynamically significant stenosis Criteria for Assigning % of Stenosis / Diameter reduction (Estimation based on the indirect measurements of the internal carotid artery velocities (ICA PSV). 1. Normal (no stenosis)=ICA PSV < 125 cm/s: ratio < 2.0: ICA EDV<40 cm/s. 2. Less than 50% stenosis=ICA PSV < 125 cm/s: ratio < 2.0: ICA EDV<40 cm/s. 3. 50 to 69% stenosis=ICA PSV of 125 to 230 cm/s: ration 2.0 ? 4.0: ICA EDV 40-100 cm/s. 4. Greater than 70% stenosis to near occlusion= ICA PSV > 230 cm/s: ratio > 4.0: ICA EDV > 100 cm/s. 5. Near occlusion= ICA PSV velocities may be low or undetectable: variable ratio and ICA EDV. 6. Total occlusion=unable to detect flow.
== END | disposition home or self-care (01) ==
LOC: RADUSWWP 10:53
PROVIDERS: ATTEND Internal Medicine
DX: I65.23 Occlusion and stenosis of bilateral carotid arteries (principal)
CPT/HCPCS: 93880

== ENCOUNTER → 2023-03-08 | Outpatient (CLI) | payer MEDICARE ==
--- NOTE | 2023-03-08 19:29 | BD ---
EXAMINATION TYPE: Axial Bone Density DATE OF EXAM: 03/08/2023 CLINICAL HISTORY: 68 years old Female. ICD-10 CODE: [id number] OSTEO RT HIP Height: 63in Weight: 228lb FRAX RISK QUESTIONS: Secondary Osteoporosis: RISK FACTORS HISTORY OF: Active: yes Postmenopausal woman: yes MEDICATIONS: Additional Medications: cholesterol med, bp med, diabetic meds, reflux med, calcium, vitamin d Additional History: type 2 diabetic EXAM MEASUREMENTS: Bone mineral densitometry was performed using the Vericept System. Bone mineral density as measured about the Lumbar spine is: ----- L1-L4(G/cm2): 1.435 T Score Values are as follows: ----- L1: 1.7 ----- L2: 1.2 ----- L3: 2.6 ----- L4: 2.6 ----- L1-L4: 2.1 Z Score Values are as follows: ----- L1: 2.2 ----- L2: 1.7 ----- L3: 3.1 ----- L4: 3.1 ----- L1-L4: 2.6 Bone mineral density has: Decreased -4.4% since study of: 05-19-2019 Bone mineral density about the R hip (g/cm2): 0.911 Bone mineral density about the L hip (g/cm2): 0.884 T Score values are as follows: -----R Neck: -1.5 -----L Neck: -1.7 -----R Total: -0.8 -----L Total: -1.0 Z Score values are as follows: -----R Neck: -0.6 -----L Neck: -0.9 -----R Total: -0.2 -----L Total: -0.4 Bone mineral density has: Decreased -0.8% since study of: 05-19-2019 FRAX%s: The graph provided illustrates a 9.3% chance for a major osteoporotic fx and a 1.4% chance fo r the hips probability for fx in 10 years time. IMPRESSION: Osteopenia (T Score between -2.5 and -1). There is slightly increased risk of fracture and the patient may be considered for treatment. Re-Screen 2-5 years. NOTE: T-SCORE=SD OF THE YOUNG ADULT MEAN.
--- NOTE | 2023-03-08 20:11 | MM ---
Reason for Exam: Screening (asymptomatic). Last mammogram was performed 3 year(s) and 9 month(s) ago. Patient History: Menarche at age 9. First Full-Term at age 25. Postmenopausal. Other cancer, age 51. Progesterone for 1 year, 4 months. Benign Excisional Biopsy on the left side. Maternal aunt had breast cancer, age 77. Risk Values: Jihan 5 year model risk: 2.5%. NCI Lifetime model risk: 7.6%. Prior Study Comparison: 11/23/2008 Bilateral Screening Mammogram, [facility]. 08/11/2010 Bilateral Screening Mammogram, [facility]. 05/19/2019 Bilateral Screening Mammogram, [facility]. Tissue Density: There are scattered fibroglandular densities. Findings: Analyzed By CAD. Chronic nodularity on both sides. There is no suspicious group of microcalcifications or new suspicious mass in either breast. Overall Assessment: Benign, BI-RAD 2 Management: Screening Mammogram of both breasts in 1 year. 1. Patient should continue monthly self breast exams. 2. A clinical breast exam by your physician is recommended on an annual basis. 3. This exam should not preclude additional follow-up of suspicious palpable abnormalities. Electronically signed and approved by: Caren Logan M.D. Radiologist
== END | disposition home or self-care (01) ==
LOC: RADMAMWWP 06:50
PROVIDERS: ATTEND Internal Medicine
DX: Z12.31 Encounter for screening mammogram for malignant neoplasm of breast (principal); M85.89 Other specified disorders of bone density and structure, multiple sites; E11.9 Type 2 diabetes mellitus without complications; Z78.0 Asymptomatic menopausal state; Z80.3 Family history of malignant neoplasm of breast
CPT/HCPCS: 77063; 77067; 77080

== ENCOUNTER → 2024-03-10 | Outpatient (CLI) | payer MEDICARE ==
--- NOTE | 2024-03-10 13:54 | CA ---
Transthoracic Echo Report Name: Mary Dupree Age: 69 Gender: F : 1955 Exam Date: 03/10/2024 08:54 Exam Location: [facility] Ht (in): 62 Wt (lb): 224 Ordering Physician: Leonid Hernandez MD Attending/Referring Phys: Leonid Hernandez MD [employer] Supervisor Tawana Early RDCS Procedure CPT: Indications: I34.0 mitral valve regurgitation Cardiac Hx: Technical Quality: Good Contrast 1: Total Dose (mL): Contrast 2: Total Dose (mL): MEASUREMENTS (Male / Female) Normal Values 2D ECHO LV Diastolic Diameter PLAX 4.1 cm 4.2 - 5.9 / 3.9 - 5.3 cm LV Systolic Diameter PLAX 2.9 cm IVS Diastolic Thickness 1.4 cm 0.6 - 1.0 / 0.6 - 0.9 cm LVPW Diastolic Thickness 1.3 cm 0.6 - 1.0 / 0.6 - 0.9 cm LV Relative Wall Thickness 0.6 RV Internal Dim ED PLAX 3.3 cm LA Systolic Diameter LX 3.1 cm 3.0 - 4.0 / 2.7 - 3.8 cm LV Diastolic Volume MOD 4C 93.4 cm??? LV Systolic Volume MOD 4C 42.0 cm??? LV Ejection Fraction MOD 4C 55.0 % LV Cardiac Index MOD 4C 1708.9 cm???/min???m??? LV Diastolic Length 4C 8.7 cm LV Systolic Length 4C 6.7 cm LV Diastolic Volume MOD 2C 53.5 cm??? LV Systolic Volume MOD 2C 12.9 cm??? LV Ejection Fraction MOD 2C 75.9 % LV Cardiac Index MOD 2C 1350.3 cm???/min???m??? LV Diastolic Length 2C 8.0 cm LV Systolic Length 2C 5.9 cm LA Volume 43.9 cm??? 18 - 58 / 22 - 52 cm??? LA Volume Index 20.3 cm???/m??? 16 - 28 cm???/m??? M-MODE Aortic Root Diameter MM 3.5 cm MV E Point Septal Separation 0.5 cm AV Cusp Separation MM 2.0 cm DOPPLER AV Peak Velocity 172.4 cm/s AV Peak Gradient 11.9 mmHg MV Area PHT 2.8 cm??? Mitral E Point Velocity 78.8 cm/s Mitral A Point Velocity 90.7 cm/s Mitral E to A Ratio 0.9 MV Deceleration Time 274.4 ms TR Peak Velocity 256.9 cm/s TR Peak Gradient 26.4 mmHg Right Ventricular Systolic Press 31.1 mmHg FINDINGS Left Ventricle Left ventricular ejection fraction is estimated at 55-60 %. Left ventricular cavity size normal. Mild concentric left ventricular hypertrophy. Normal left ventricular wall motion. Right Ventricle Mild right ventricular dilatation. Right ventricular systolic pressure within normal limits. Right Atrium Normal right atrial size. Left Atrium Normal left atrial size. Mitral Valve Structurally normal mitral valve. No mitral stenosis, regurgitation or prolapse. Aortic Valve Trileaflet aortic valve. No aortic valve stenosis or regurgitation. Tricuspid Valve Structurally normal tricuspid valve. Mild tricuspid regurgitation. Pulmonic Valve Structurally normal pulmonic valve. Pericardium No pericardial effusion. Aorta Normal size aortic root and proximal ascending aorta. CONCLUSIONS Normal LV systolic function No significant valvular abnormalities Previewed by: Dr. Dominik Ortiz MD (Electronically Signed) Final Date: 10 March 2024 13:53
--- NOTE | 2024-03-11 09:50 | MM ---
Reason for Exam: Screening (asymptomatic). Last screening mammogram was performed 12 month(s) ago. Patient History: Menarche at age 9. First Full-Term at age 25. Postmenopausal. Other cancer, age 51. Progesterone for 1 year, 4 months. Benign Excisional Biopsy on the left side. Maternal aunt had breast cancer, age 77. Risk Values: Jihan 5 year model risk: 2.5%. NCI Lifetime model risk: 7.2%. Prior Study Comparison: 08/11/2010 Bilateral Screening Mammogram, [facility]. 05/19/2019 Bilateral Screening Mammogram, [facility]. 03/08/2023 Bilateral MG 3D screening mammo w/cad, [facility]. Tissue Density: There are scattered areas of fibroglandular density. Findings: Analyzed By CAD. There is no suspicious group of microcalcifications or new suspicious mass in either breast. Stable chronic nodularity. Benign appearing calcifications. Overall Assessment: Benign, BI-RAD 2 Management: Screening Mammogram of both breasts in 1 year. . Patient should continue monthly self-breast exams. A clinical breast exam by your physician is recommended on an annual basis. This exam should not preclude additional follow-up of suspicious palpable abnormalities. Note on Jihan scores and lifetime risk: 1. A Jihan score greater than 3% is considered moderate risk. If this is the case, consider specialist referral to assess eligibility for a risk reducing agent. 2. If overall lifetime risk for the development of breast cancer is 20% or higher, the patient may qualify for future screening with alternating mammogram and breast MRI. Electronically signed and approved by: Tom Mai M.D. Radiologis
== END | disposition home or self-care (01) ==
LOC: RADECHMAIN 08:34
PROVIDERS: ATTEND Internal Medicine
DX: Z12.31 Encounter for screening mammogram for malignant neoplasm of breast (principal); I34.0 Nonrheumatic mitral (valve) insufficiency; Z78.0 Asymptomatic menopausal state; Z80.3 Family history of malignant neoplasm of breast
CPT/HCPCS: 77063; 77067; 93306

== ENCOUNTER 2024-04-15 06:43 | Day surgery (SDC) | payer MEDICARE ==
[2024-04-11 16:45] VITALS: BMI 39.6
[2024-04-15 07:06] VITALS: RESP 16; TEMP 98.1
[2024-04-15] MEDS ORDERED: LIDOCAINE 1% (10MG/ML) FOR IV START INTRADERMA PRN (07:18)
[2024-04-15 07:19] LABS: Glucose,Whole Blood 137 mg/dL (70-110)
[2024-04-15] MEDS: IV FLUID CONTINUATION 1,000 ML IV ONE (07:22)
[2024-04-15] MEDS: LACTATED RINGERS 1,000 ML IV SCH (07:50)
[2024-04-15] MEDS ORDERED: LIDOCAINE 2% (PF) 20 MG/ML 5 ML VIAL ONE (07:58)
[2024-04-15] MEDS ORDERED: PROPOFOL 10 MG/ML 20 ML VIAL IV ONE (07:58)
--- NOTE | 2024-04-15 08:00 | P.GSHP ---
History of Present Illness H&P Date: 04/15/24 Chief Complaint: Anemia, GERD, screening 6-year-old female here for upper and lower endoscopy. Patient has a history of chronic anemia dating back 20 to 30 years or more. Last colonoscopy 10 years or more was normal. No family history of colon cancer. No bowel complaints. Mild reflux symptoms. No dysphagia. Past Medical History Past Medical History: Cancer, Diabetes Mellitus, GERD/Reflux, Hypertension, Osteoarthritis (OA) Additional Past Medical History / Comment(s): Hx basal skin cancer on face. History of Any Multi-Drug Resistant Organisms: MRSA Date of last positivie culture/infection: 11/12/17 MDRO Source:: RT LEG Past Surgical History: Section, Joint Replacement, Orthopedic Surgery Additional Past Surgical History / Comment(s): Breast biopsy, skin cancer removed, bilateral knee replacements. Past Anesthesia/Blood Transfusion Reactions: Motion Sickness, Postoperative Nausea & Vomiting (PONV) Additional Past Anesthesia/Blood Transfusion Reaction / Comment(s): Severe motion sickness. Smoking Status: Never smoker - Past Family History Mother Family Medical History: Cancer, Diabetes Mellitus, Myocardial Infarction (NE) Additional Family Medical History / Comment(s): Pancreatic cancer. Father Family Medical History: Cancer Additional Family Medical History / Comment(s): Kidney cancer. Daughter(s) Family Medical History: Cancer Additional Family Medical History / Comment(s): Thyroid cancer, amloydosis. Medications and Allergies Home Medications Medication Instructions Recorded Confirmed Type metFORMIN HCL ER [Glucophage XR] 1,000 mg PO DAILY 05/26/17 04/11/24 History sitaGLIPtin [Januvia] 100 mg PO DAILY 05/26/17 04/11/24 History Potassium 99 mg PO DAILY 03/22/18 04/11/24 History Calcium Carbonate [Calcium] 600 mg PO DAILY 08/11/19 04/11/24 History metFORMIN HCL [Glucophage] 500 mg PO HS 08/11/19 04/11/24 History Aspirin [Adult Low Dose Aspirin EC] 81 mg PO DAILY 04/11/24 04/11/24 History Dapagliflozin Propanediol [Farxiga] 5 mg PO DAILY 04/11/24 04/11/24 History Ibuprofen [Motrin Ib] 200 - 800 mg PO DIRECTED PRN 04/11/24 04/11/24 History Omeprazole (Unknown Dose) 1 tab PO BID 04/11/24 04/15/24 History Valsartan/Hydrochlorothiazide 1 each PO DAILY 04/11/24 04/11/24 History [Valsartan-Hctz 320-12.5 mg Tab] Allergies Allergy/AdvReac Type Severity Reaction Status Date / Time azithromycin Allergy Rash/Hives Verified 04/15/24 07:00 Penicillins Allergy Rash/Hives Verified 04/15/24 07:00 Sulfa (Sulfonamide Allergy Rash/Hives Verified 04/15/24 07:00 Antibiotics) sulfamethoxazole Allergy Rash/Hives Verified 04/15/24 07:00 [From Septra] trimethoprim [From Septra] Allergy Rash/Hives Verified 04/15/24 07:00 cephalexin [From Keflex] AdvReac Nausea & Verified 04/15/24 07:00 Vomiting erythromycin base AdvReac Nausea & Verified 04/15/24 07:00 Vomiting Surgical - Exam Vital Signs Temp Pulse Resp BP Pulse Ox 98.1 F 82 16 185/80 98 04/15/24 07:05 04/15/24 07:05 04/15/24 07:05 04/15/24 07:05 04/15/24 07:05 Physical exam: General: Well-developed, well-nourished HEENT: Normocephalic, sclerae nonicteric Abdomen: Nontender, nondistended Extremities: No edema Neuro: Alert and oriented Results - Labs Abnormal Lab Results - Last 24 Hours (Table) 04/15/24 Range/Units 07:13 POC Glucose (mg/dL) 137 H (70-110) mg/dL Assessment and Plan (1) GERD (gastroesophageal reflux disease) Narrative/Plan: Will proceed with upper and lower endoscopy Current Visit: Yes Status: Acute Code(s): K21.9 - GASTRO-ESOPHAGEAL REFLUX DISEASE WITHOUT ESOPHAGITIS SNOMED Code(s): 718779221
--- NOTE | 2024-04-15 08:20 | P.PCN ---
Date of Procedure: 04/15/24 Procedure(s) Performed: PREOPERATIVE DIAGNOSIS: Anemia, GERD, screening POSTOPERATIVE DIAGNOSIS: Gastritis, moderate-sized hiatal hernia, diverticulosis PROCEDURE: 1. EGD with biopsy 2. Colonoscopy ANESTHESIA: MAC SURGEON: Titi Rainey M.D. SPECIMENS: Antrum ENDOSCOPIC PROCEDURE: The patient was on the endoscopy table in the left decubitus position. The Olympus gastroscope was inserted into the oropharynx and passed under direct visualization to the region of the third portion of the duodenum. From that point the scope was slowly withdrawn inspecting all surfaces carefully. There were no neoplastic inflammatory or polypoid lesions throughout the duodenum. The pylorus was widely patent. The stomach was carefully inspected. There was mild diffuse gastritis present. A biopsy of the antrum took place to rule out H. pylori. Retroflexion revealed a moderate-sized hiatal hernia. There were no inflammatory changes there. The esophagus was then carefully examined. There were no neoplastic inflammatory or polypoid lesions throughout the visualized esophagus. The patient was kept on the endoscopy table in the left decubitus position. The Olympus colonoscope was inserted into the anus and passed under direct visualization to the base of the cecum. The appendiceal orifice was visualized. From that point the scope was slowly withdrawn inspecting all surfaces carefully. There were no neoplastic inflammatory or polypoid lesions throughout the cecum, ascending, transverse, descending, sigmoid and rectum. There was extensive diverticulosis noted. The patient had some small stool balls present throughout the colon from the diverticulosis limiting the visualization slight ly. Digital rectal examination was normal. The patient was taken to the recovery room in stable condition per anesthesia guidelines. RECOMMENDATIONS: Resume diet. Repeat colonoscopy 10 years.
[2024-04-15 08:37] VITALS: BP 131/80; PULSE 71
== END 2024-04-15 08:56 | disposition home or self-care (01) ==
LOC: ORWHC2ENDO 06:43
PROVIDERS: ATTEND Surgery
DX: K29.50 Unspecified chronic gastritis without bleeding (principal); K21.9 Gastro-esophageal reflux disease without esophagitis; I10 Essential (primary) hypertension; K44.9 Diaphragmatic hernia without obstruction or gangrene; K57.30 Diverticulosis of large intestine without perforation or abscess without bleeding; E11.9 Type 2 diabetes mellitus without complications; D64.9 Anemia, unspecified; M19.90 Unspecified osteoarthritis, unspecified site; Z79.84 Long term (current) use of oral hypoglycemic drugs; Z88.0 Allergy status to penicillin; Z88.1 Allergy status to other antibiotic agents; Z88.2 Allergy status to sulfonamides; Z85.828 Personal history of other malignant neoplasm of skin; Z79.82 Long term (current) use of aspirin; Z79.899 Other long term (current) drug therapy; Z79.1 Long term (current) use of non-steroidal anti-inflammatories (NSAID); Z88.8 Allergy status to other drugs, medicaments and biological substances
CPT/HCPCS: 88305; 45378; 43239; J2704; J2001